=== PATIENT | male | born 1940 | race Two or more races ===

== ENCOUNTER 2020-03-15 11:48 | Inpatient (IN) | payer MEDICARE, OTHER ==
[~2020-03-15] VITALS: Ht 172.7 cm; Wt 67.2 kg
--- NOTE | 2020-03-15 13:35 | NUR ---
Telemetry admit from ER SHAREE TSE admitted to Telemetry unit after SBAR received from DONNA Liang at [facility]. Patient is A & O x4, no s/s of distress. Patient transferred by BANNER to room 286B. Patient oriented to Suri Vera, primary RN, unit, room, bed, and unit policies regarding patient care and visiting hours. Patient on room air, weighed by bedscale and encouraged to call if they need something. All questions and concerns addressed, patient verbalized understanding.
--- NOTE | 2020-03-15 13:36 | NUR ---
Accepting Dr. Darrel SHEA.
[2020-03-15 14:00] VITALS: BP 128/80
--- NOTE | 2020-03-15 14:14 | NUR ---
Spoke to Dr. Rojo, will page Dr. Garcia as accepting .
[2020-03-15] MEDS ORDERED: ACETAMINOPHEN 500 MG TAB PO PRN (15:30)
[2020-03-15] MEDS ORDERED: NITROGLYCERIN 0.4 MG SL TAB SL PRN (15:30)
[2020-03-15] MEDS ORDERED: MORPHINE SULF INJ 2 MG/ML SYRINGE 1ML IV PRN (15:30)
[2020-03-15] MEDS ORDERED: HYDR-3682 PO (15:52)
[2020-03-15] MEDS ORDERED: BUSP10TA90 PO (15:52)
[2020-03-15] MEDS ORDERED: CARV12.544 PO (15:52)
[2020-03-15] MEDS ORDERED: TRAZ-181 PO (15:52)
[2020-03-15] MEDS ORDERED: ATOR20TA PO (15:52)
[2020-03-15 17:30] LABS: Basophils # (auto) 0.1 10 ^3/uL (0-0.2); Basophils % (auto) 1.9 % (0.0-2.0); Eosinophils # (auto) 0.5 10 ^3/uL (0-0.8); Hematocrit 32.1 % (41.0-53.0); Hemoglobin 11.1 g/dL (13.5-17.5); Monocytes # (auto) 0.8 10 ^3/uL (0-1.3); Nucleated Red Blood Cells % 0.1 %; Red Blood Cells 3.01 10^6/uL (4.5-5.90)
[2020-03-15 17:32] LABS: Eosinophils % (auto) 9.4 % (0.0-7.0); Lymphocytes # (auto) 1.7 10 ^3/uL (0.4-5.4); Lymphocytes % (auto) 33.7 % (10.0-50.0); Mean Corpuscular Hemoglobin 36.9 pg (28.0-32.0); Mean Corpuscular Hgb Conc. 34.6 g/dL (32.0-36.0); Mean Corpuscular Volume 106.6 fL (80.0-100.0); Monocytes % (auto) 15.8 % (0.0-12.0); Neutrophils # (auto) 1.9 10 ^3/uL (1.6-8.6); Neutrophils % (auto) 39.2 % (37.0-80.0); Platelet Count (auto) 155 10^3/uL (140-450); Red Cell Distribution Width 13.6 % (11.8-14.3); White Blood Cell 4.9 10^3/uL (4.4-10.8)
[2020-03-15 17:43] LABS: Albumin 2.8 g/dL (3.4-5.0); Calcium 8.1 mg/dL (8.5-10.1); Potassium 3.7 mmol/L (3.5-5.1)
[2020-03-15 17:48] LABS: BUN/Creatinine Ratio 10.3; Bilirubin, Total 0.8 mg/dL (0.2-1.0); Total Protein 7.4 g/dL (6.4-8.2)
[2020-03-15 17:51] LABS: INR 1.12 (0.9-1.15); Partial Thromboplastin Time 31.6 sec (23.64-32.05)
[2020-03-15] MEDS: CARVEDILOL 12.5 MG TAB PO SCH (19:11)
--- NOTE | 2020-03-15 19:44 | NUR ---
Opening Shift Note Received report and assumed care of patient. Patient is awake and alert. No signs or symptoms of distress noted, patient currently denies pain. Instructed patient on plan of care and to call for assistance as needed. Will continue to monitor.
[2020-03-15] MEDS: ATORVASTATIN 20 MG TAB PO SCH (21:57)
[2020-03-15] MEDS: busPIRone HCL 10 MG TAB PO SCH (21:57)
[2020-03-15] MEDS: MAGNESIUM OXIDE 400 MG TAB PO SCH (21:57)
[2020-03-15] MEDS: AMIODARONE HCL 200 MG TAB PO SCH (21:57)
[2020-03-15] MEDS: traZODone HCL 50 MG TAB PO SCH (21:58)
[2020-03-15] MEDS: hydrOXYzine HCL 10 MG TAB PO PRN (21:58)
[2020-03-15 22:29] VITALS: BP 132/75
[2020-03-16 01:04] LABS: Urine Bacteria FEW /hpf (None Seen); Urine Blood Negative /uL (Negative); Urine Hyaline Cast FEW /lpf (0 - 2); Urine Mucus FEW (None Seen); Urine Specific Gravity 1.014 (1.001-1.035); Urine WBC 2 /hpf (0 - 3)
[2020-03-16 05:19] VITALS: BP 133/72
--- NOTE | 2020-03-16 07:20 | NUR ---
Opening Note Assumed pt care from NOC RN. Pt is a/ox4 with no s/s of distress or SOB. Pt is currently sitting upright in bed with no complaints at this time. Discussed POC with pt; pending Cardiology consult, pt verbalized understanding. Safety measures maintained with call light within reach, bed in lowest position and side rails up. Will continue to monitor.
[2020-03-16] MEDS: CARVEDILOL 12.5 MG TAB PO SCH ×2 (07:21→17:13)
[2020-03-16 08:37] VITALS: BP 114/67
[2020-03-16] MEDS: MAGNESIUM OXIDE 400 MG TAB PO SCH ×2 (08:47→21:59)
[2020-03-16] MEDS: CLOPIDOGREL BISULFATE 75 MG TAB PO SCH (08:47)
[2020-03-16] MEDS: AMIODARONE HCL 200 MG TAB PO SCH ×2 (08:47→21:59)
[2020-03-16] MEDS: busPIRone HCL 10 MG TAB PO SCH ×2 (08:48→21:59)
--- NOTE | 2020-03-16 09:26 | NUR ---
Dr Salazar at Bedside MD to see pt. Plans for L HC on Wednesday. New orders received.
--- NOTE | 2020-03-16 12:12 | NUR ---
Dr Yin at Bedside MD to see pt. Discussed POC with pt and [facility] plans on Wednesday. No new orders. Will continue to monitor.
[2020-03-16 12:48] VITALS: BP 123/70
[2020-03-16] MEDS: hydrOXYzine HCL 10 MG TAB PO PRN (15:00)
--- NOTE | 2020-03-16 15:30 | NUR ---
IV Insertion and Removal 20 G to pt's R FA removed. One attempt made. Clean sterile technique used. Pt tolerated insertion well. IV removal to pt's R FA due to self removal. Catheter was removed fully intact. Site is asymptomatic. No bleeding to site.
[2020-03-16 17:00] VITALS: BP 117/69
--- NOTE | 2020-03-16 19:42 | NUR ---
Opening Shift Note Received report and assumed care of patient. Patient is awake and alert. Instructed patient on plan of care and to call for assistance as needed. Will continue to monitor.
[2020-03-16] MEDS: traZODone HCL 50 MG TAB PO SCH (21:59)
[2020-03-16] MEDS: ATORVASTATIN 20 MG TAB PO SCH (21:59)
[2020-03-16 22:00] VITALS: BP 128/68
[2020-03-17 05:30] VITALS: BP 127/70
--- NOTE | 2020-03-17 07:30 | NUR ---
Opening Shift Note RECEIVED REPORT FROM NOC RN. Assumed care of patient, awake and alert. No S/S of distress/SOB or pain. BED IN LOWEST, LOCKED POSITION WITH SIDERAILS UP x2 AND CALL LIGHT WITHIN REACH. Instructed on POC and to call for assist PRN, will continue to monitor for changes Q1hr and PRN.
[2020-03-17] MEDS: CARVEDILOL 12.5 MG TAB PO SCH ×2 (08:15→17:30)
[2020-03-17] MEDS: hydrOXYzine HCL 10 MG TAB PO PRN ×2 (08:15→17:30)
[2020-03-17 09:00] VITALS: BP 118/58
[2020-03-17] MEDS: busPIRone HCL 10 MG TAB PO SCH ×2 (09:35→22:24)
[2020-03-17] MEDS: CLOPIDOGREL BISULFATE 75 MG TAB PO SCH (09:35)
[2020-03-17] MEDS: AMIODARONE HCL 200 MG TAB PO SCH ×2 (09:36→22:24)
[2020-03-17] MEDS: MAGNESIUM OXIDE 400 MG TAB PO SCH ×2 (09:36→22:24)
--- NOTE | 2020-03-17 12:00 | NUR ---
DR. Rama CAMARENA AT BEDSIDE.
[2020-03-17 12:30] VITALS: BP 113/59
[2020-03-17 16:58] VITALS: BP 110/63
--- NOTE | 2020-03-17 19:00 | NUR ---
OPENING NOTE Received report from day shift RN. Patient is A&O X's 4 with no s/s of distress and reports no pain. Educated patient on POC and to use call light when in need of assistance. Patient verbalized understanding. Bed is in lowest/locked position with side rails up X's 2 and call light is within reach of patient. Will continue care. Cane is at bedside.
[2020-03-17 21:28] VITALS: BP 111/57
[2020-03-17] MEDS: ATORVASTATIN 20 MG TAB PO SCH (22:24)
[2020-03-17] MEDS: traZODone HCL 50 MG TAB PO SCH (22:24)
--- NOTE | 2020-03-18 | NUR ---
PATIENT NPO Patient NPO. removed food/water from bedside. Patient is aware
[2020-03-18 05:00] VITALS: BP 116/65
--- NOTE | 2020-03-18 07:50 | NUR ---
PATIENT TAKEN TO CATTLE DEHORNER FOR PROCEDURE.
[2020-03-18] MEDS: CARVEDILOL 12.5 MG TAB PO SCH ×2 (08:00→18:00)
[2020-03-18] MEDS ORDERED: LIDOCAINE 2%HCL (LOCAL ANESTH.) INJ 20ML MDV ONE (08:03)
[2020-03-18] MEDS ORDERED: IODIXANOL 320MG/ML 100ML BTL IV ONE ×2 (08:04→08:53)
[2020-03-18] MEDS ORDERED: fentaNYL CITRATE 100 MCG/2 ML VL ONE (08:12)
[2020-03-18] MEDS ORDERED: ANGIOMAX 250 MG VIAL IV ONE (08:12)
[2020-03-18] MEDS ORDERED: SODIUM CHL 0.9% 50 ML ONE (08:13)
[2020-03-18] MEDS ORDERED: MIDAZOLAM HCL 1MG/1ML-2 ML VIAL ONE (08:13)
[2020-03-18] MEDS ORDERED: CLOPIDOGREL 300 MG TAB ONE (09:00)
[2020-03-18] MEDS ORDERED: ASPirin 325 MG TAB ONE (09:00)
[2020-03-18 09:07] VITALS: BP 120/63
[2020-03-18] MEDS: CLOPIDOGREL BISULFATE 75 MG TAB PO SCH (10:00)
--- NOTE | 2020-03-18 10:36 | NUR ---
RECEIVED REPORT FROM DONNA ROSS.
--- NOTE | 2020-03-18 10:50 | NUR ---
PATIENT BACK ON UNIT FROM LANGUAGE PATH.
[2020-03-18] MEDS: MAGNESIUM OXIDE 400 MG TAB PO SCH ×2 (12:42→21:59)
[2020-03-18] MEDS: busPIRone HCL 10 MG TAB PO SCH ×2 (12:42→21:58)
[2020-03-18] MEDS: AMIODARONE HCL 200 MG TAB PO SCH ×2 (12:42→21:59)
[2020-03-18 12:52] VITALS: BP 105/62
[2020-03-18 17:08] VITALS: BP 99/57
--- NOTE | 2020-03-18 19:00 | NUR ---
OPENING NOTE Received report from day shift RN. Patient is A&O X's 4 with no s/s of distress and reports no pain. Dressing to left groin is C/D/I and is soft. Patient denies any pain to area. Educated patient on POC and to use call light when in need of assistance. Patient verbalized understanding. Bed is in lowest/locked position with side rails up X's 2 and call light is within reach of patient. Will continue care. Cane is at bedside.
[2020-03-18] MEDS: hydrOXYzine HCL 10 MG TAB PO PRN (20:08)
[2020-03-18] MEDS: traZODone HCL 50 MG TAB PO SCH (21:59)
[2020-03-18] MEDS: ATORVASTATIN 20 MG TAB PO SCH (21:59)
[2020-03-18 22:27] VITALS: BP 116/62
[2020-03-19 05:09] VITALS: BP 111/57
[2020-03-19 06:50] LABS: Basophils # (auto) 0.1 10 ^3/uL (0-0.2); Eosinophils # (auto) 0.3 10 ^3/uL (0-0.8); Lymphocytes # (auto) 1.2 10 ^3/uL (0.4-5.4); Monocytes # (auto) 0.7 10 ^3/uL (0-1.3); White Blood Cell 4.8 10^3/uL (4.4-10.8)
[2020-03-19 06:52] LABS: Basophils % (auto) 1.1 % (0.0-2.0); Eosinophils % (auto) 7.1 % (0.0-7.0); Hemoglobin 9.9 g/dL (13.5-17.5); Mean Corpuscular Hemoglobin 37.3 pg (28.0-32.0); Mean Corpuscular Hgb Conc. 35.4 g/dL (32.0-36.0); Mean Corpuscular Volume 105.4 fL (80.0-100.0); Monocytes % (auto) 14.4 % (0.0-12.0); Neutrophils # (auto) 2.5 10 ^3/uL (1.6-8.6); Neutrophils % (auto) 52.4 % (37.0-80.0); Platelet Count (auto) 130 10^3/uL (140-450); Red Blood Cells 2.65 10^6/uL (4.5-5.90); Red Cell Distribution Width 13.4 % (11.8-14.3)
[2020-03-19 07:26] LABS: BUN/Creatinine Ratio 13.9; Potassium 4.1 mmol/L (3.5-5.1)
[2020-03-19 08:00] VITALS: BP 111/64
[2020-03-19] MEDS: CARVEDILOL 12.5 MG TAB PO SCH (08:00)
--- NOTE | 2020-03-19 08:20 | NUR ---
Opening Shift Note Assumed care of patient, awake and alert. No S/S of distress/SOB or pain. Instructed on POC and to call for assist PRN, will continue to monitor for changes Q1hr and PRN. Bed locked in lowest position with two side rails up and call light in reach.
[2020-03-19 09:00] VITALS: BP 111/64
[2020-03-19] MEDS: AMIODARONE HCL 200 MG TAB PO SCH (09:56)
[2020-03-19] MEDS: CLOPIDOGREL BISULFATE 75 MG TAB PO SCH (09:57)
[2020-03-19] MEDS: MAGNESIUM OXIDE 400 MG TAB PO SCH (09:57)
[2020-03-19] MEDS: busPIRone HCL 10 MG TAB PO SCH (09:57)
[2020-03-19] MEDS ORDERED: ASPirin 81 mg TAB PO SCH (10:00)
--- NOTE | 2020-03-19 12:08 | NUR ---
assessment re: ss consult needs more help at home Patient is a 79 year old male who is alert and oriented. Patients cognitive abilities are intact. Prior to admission patient lived home with family and functioned independently. Patient informed me he is able to care for his own ADLs. Per patient he will return home to his prior living arrangements post discharge and family will transport him home. Patient informed me he has a cane for home use. I informed patient of his ss consult for needing additional help at home. Patient informed me he never requested ss consult that he needs additional help at home. Patient informed me he cares for himself. Patient informed me he has good family support. Patient informed me the only thing he does not do is drive. Patient informed me his daughter and son in law are in the home for any needs he may have. Patient has no post discharge needs at this time. I informed patient he has a right to speak to a social service agency director regarding all care. I informed patient he has a right to participate in any and all discharge planning. Patient does not have a POA and advanced directive. I have offered patient information on POA and advanced directives. I informed the patient the advantages and benefits of having an Advanced Directive. Patient verbalized understanding and agreed to discharge plan. Addendum: 03/19/20 at 1215 by Tamika ZARAGOZA Amended: Links added.
[2020-03-19 13:01] VITALS: BP 128/63
[2020-03-19 14:04] VITALS: BP 111/64
--- NOTE | 2020-03-19 16:30 | NUR ---
Discharge instructions given as ordered. Encourage to follow up with PMD as instructed. All questions and concerns addressed. Patient verbalized understanding. Medication reconciliation form completed and copy given to patient. Home medications held in Pharmacy returned to patient, and no needed vaccines given. IV removed with catheter intact, pressure dressing applied. Telemetry unit returned to ICU. Patient taken to vehicle via wheelchair with all personal belongings, accompanied by staff and family member. No distress noted at time of departure.
== END 2020-03-19 16:30 | disposition home or self-care (01) | DRG 247 ==
LOC: TELE-WESTW 13:30
PROVIDERS: ADMIT Internal Medicine; ATTEND Internal Medicine
PROC: 027034Z Dilation of Coronary Artery, One Artery with Drug-eluting Intraluminal Device, Percutaneous Approach (ICD-10-PCS; principal; 2020-03-18)
PROC: B2111ZZ Fluoroscopy of Multiple Coronary Arteries using Low Osmolar Contrast (ICD-10-PCS; 2020-03-18)
DX: I25.110 Atherosclerotic heart disease of native coronary artery with unstable angina pectoris (principal); I47.2 Ventricular tachycardia; R57.9 Shock, unspecified; E44.1 Mild protein-calorie malnutrition; N18.9 Chronic kidney disease, unspecified; I12.9 Hypertensive chronic kidney disease with stage 1 through stage 4 chronic kidney disease, or unspecified chronic kidney disease; E78.5 Hyperlipidemia, unspecified; F41.9 Anxiety disorder, unspecified; Z79.02 Long term (current) use of antithrombotics/antiplatelets; Z91.19 Patient's noncompliance with other medical treatment and regimen; Z95.810 Presence of automatic (implantable) cardiac defibrillator; Z79.82 Long term (current) use of aspirin
CPT/HCPCS: 36415; 71045; 80048; 80053; 80061; 81001; 85025; 85610; 85730; 86850; 86900; 86901; 92928; 93454; 99152; 99153; C1874; G0378; J2250; Q9967

== ENCOUNTER 2020-04-28 16:17 | Inpatient (IN) | payer OTHER ==
[~2020-04-28] VITALS: Ht 172.7 cm; Wt 68.4 kg
[~2020-04-28 16:17] MED LIST: ATOR20TA PO; BUSP10TA90 PO; CARV12.544 PO; HYDR-3682 PO; TRAZ-181 PO
[2020-04-28 16:52] LABS: Eosinophils # (auto) 0.1 10 ^3/uL (0-0.8); Hematocrit 38.6 % (41.0-53.0); Hemoglobin 13.4 g/dL (13.5-17.5); Mean Corpuscular Hemoglobin 34.8 pg (28.0-32.0); Mean Corpuscular Hgb Conc. 34.7 g/dL (32.0-36.0); Mean Corpuscular Volume 100.3 fL (80.0-100.0); Monocytes # (auto) 0.7 10 ^3/uL (0-1.3); Monocytes % (auto) 10.3 % (0.0-12.0); Platelet Count (auto) 138 10^3/uL (140-450); Red Blood Cells 3.85 10^6/uL (4.5-5.90)
[2020-04-28 16:54] LABS: Basophils # (auto) 0.2 10 ^3/uL (0-0.2); Basophils % (auto) 3.2 % (0.0-2.0); Lymphocytes # (auto) 1.5 10 ^3/uL (0.4-5.4); Lymphocytes % (auto) 22.4 % (10.0-50.0); Neutrophils # (auto) 4.3 10 ^3/uL (1.6-8.6); Neutrophils % (auto) 63.1 % (37.0-80.0); Nucleated Red Blood Cells % 0.2 %; White Blood Cell 6.9 10^3/uL (4.4-10.8)
[2020-04-28 17:07] LABS: Albumin 3.7 g/dL (3.4-5.0); Anion Gap 16 (5-15); Blood Urea Nitrogen 9 mg/dL (7-18); Calcium 8.4 mg/dL (8.5-10.1); Carbon Dioxide 18 mmol/L (21-32); Chloride 102 mmol/L (98-107); Glucose 124 mg/dL (74-106); Potassium 3.5 mmol/L (3.5-5.1); Sodium 136 mmol/L (136-145)
[2020-04-28 17:08] LABS: INR 1.12 (0.9-1.15); Partial Thromboplastin Time 27.5 sec (23.64-32.05)
[2020-04-28 17:13] LABS: Alanine Aminotransferase 241 U/L (16-61); Alkaline Phosphatase 148 U/L (45-117); Aspartate Aminotransferase 322 U/L (15-37); BUN/Creatinine Ratio 9.6; GFR African American 100 mL/min; GFR Non-African American 82 mL/min; Total Protein 8.7 g/dL (6.4-8.2)
[2020-04-28] MEDS ORDERED: DOCUSATE SOD 100 MG CAP PO PRN (20:45)
[2020-04-28] MEDS ORDERED: ONDANSETRON HCL 4 MG/2 ML VIAL IV PRN (20:45)
[2020-04-28] MEDS ORDERED: traZODone HCL 50 MG TAB PO PRN (20:45)
[2020-04-28] MEDS ORDERED: DEXTROSE (50%) 50ML SYRG IV PRN (20:45)
[2020-04-28] MEDS ORDERED: NITROGLYCERIN 0.4 MG SL TAB SL PRN (20:45)
[2020-04-28] MEDS ORDERED: MORPHINE SULF INJ 2 MG/ML SYRINGE 1ML IV PRN ×2 (20:45)
[2020-04-28] MEDS ORDERED: ACETAMINOPHEN 325 MG TAB PO PRN ×2 (20:45)
[2020-04-28 21:45] VITALS: BP 141/84
[2020-04-28] MEDS ORDERED: ATORVASTATIN 20 MG TAB PO SCH (22:00)
[2020-04-28] MEDS: busPIRone HCL 10 MG TAB PO SCH (22:41)
[2020-04-28] MEDS: CARVEDILOL 12.5 MG TAB PO SCH (22:42)
[2020-04-28] MEDS: ENOXAPARIN SOD 60 MG/0.6 ML SYRINGE SC SCH (22:42)
--- NOTE | 2020-04-28 22:52 | NUR ---
Telemetry admit from ER Patient admitted to Telemetry unit and oriented to primary RN, unit, room, bed, and unit policies regarding patient care and visiting hours. Patient now on continuous telemetry monitoring, tele box #14 and telemetry reading on arrival to unit is atrial fibrillation with runs of ventricular tachycardia (see following note). Patient placed on bedside oxygen at 2 l/min, weighed by bedscale and encouraged to call if they need something. All questions and concerns addressed, patient verbalized understanding.
[2020-04-28] MEDS: ATORVASTATIN 20 MG TAB PO SCH (22:58)
--- NOTE | 2020-04-28 23:24 | NUR ---
Patient had 4 runs of ventricular tachycardia, one at 2249 (16 beats), one at 2254 (22 beats), one at 2254 again (22 beats) and a final one at 2255 (5 beats). Patient arrived at 2252 and had to use the bathroom. While in the bathroom he had a sudden, single burst of chest pain at approximately 2253 that was so intense it caused him to vomit dark brown vomitus. Afterwards, pain immediately disappeared and patient was able to be walked to his bed. Patient noted to be in V-paced rhythm primarily thereafter, changing occasionally to Atrial fibrillation. Vitals: BP: 141/84 with MAP of 116, RR: 18, O2 saturation: 94%, Pulse: 93 (atrial fibrillation), temp: 98.2. EKG performed: Atrial Fibrillation with V-paced complexes. Patient placed on 2 l/min NC. Reviewed medical history and confirmed current medication list before showing MD Nam the EKG strip and printouts of Ventricular Tachycardia runs. MD made aware patient has AICD. MD Nam noted that single instance of pain may be from AICD firing but that Floor Scraper would evaluate in AM. MD Nam did not order any medications at that time but asked that I contact him again if patient becomes symptomatic or if final troponin is elevated so that we can start him on Amiodarone. Patient is currently resting in bed comfortably. Bedside commode placed at bedside along with urinal so that patient does not have to move far to accomplish elimination needs. Will continue to assess.
[2020-04-29] VITALS (7 sets, daily range): BP systolic 115–146; BP diastolic 60–93
[2020-04-29] MEDS: ACCU-CHEK COMFORT CURVE STRIP VI SCH ×6 (00:36→20:00)
[2020-04-29] MEDS: InsuLIN REG 1unit/0.01ml Soln (100units/ml) SC SCH ×6 (00:37→20:00)
[2020-04-29] MEDS: ONDANSETRON HCL 4 MG/2 ML VIAL IV PRN ×2 (00:40→06:49)
[2020-04-29] MEDS ORDERED: MAGN400C4 PO (01:28)
[2020-04-29] MEDS ORDERED: CLOP75TA41 PO (01:28)
[2020-04-29] MEDS ORDERED: ASPI-231 PO (01:28)
[2020-04-29 05:33] LABS: Basophils # (auto) 0.1 10 ^3/uL (0-0.2); Basophils % (auto) 1.2 % (0.0-2.0); Eosinophils # (auto) 0 10 ^3/uL (0-0.8); Lymphocytes # (auto) 1.1 10 ^3/uL (0.4-5.4); Neutrophils # (auto) 5.1 10 ^3/uL (1.6-8.6); Neutrophils % (auto) 71.5 % (37.0-80.0); Nucleated Red Blood Cells % 0.1 %; White Blood Cell 7.1 10^3/uL (4.4-10.8)
[2020-04-29 05:35] LABS: Eosinophils % (auto) 0.4 % (0.0-7.0); Hematocrit 34.3 % (41.0-53.0); Lymphocytes % (auto) 15.4 % (10.0-50.0); Mean Corpuscular Hemoglobin 35.4 pg (28.0-32.0); Mean Corpuscular Hgb Conc. 35.1 g/dL (32.0-36.0); Mean Corpuscular Volume 100.9 fL (80.0-100.0); Monocytes # (auto) 0.8 10 ^3/uL (0-1.3); Monocytes % (auto) 11.5 % (0.0-12.0); Platelet Count (auto) 109 10^3/uL (140-450); Red Cell Distribution Width 13.6 % (11.8-14.3)
[2020-04-29 05:57] LABS: Calcium 8.2 mg/dL (8.5-10.1)
[2020-04-29 06:02] LABS: BUN/Creatinine Ratio 23.7
--- NOTE | 2020-04-29 08:00 | NUR ---
ASSESSMENT NOTE PT IS ALERT ORIENTED X4, RESTING IN BED COMFORTABLY, NO DISTRESS NOTED, ABLE TO SELF REPOSITION AND VERBALIS HIS DEMANDS, DENIES ANY CHEST PAIN AT THIS TIME, CALL LIGHT WITHIN REACH
[2020-04-29] MEDS: ASPirin 81 mg TAB PO SCH (09:24)
[2020-04-29] MEDS: DOCUSATE SOD 100 MG CAP PO SCH (09:24)
[2020-04-29] MEDS: busPIRone HCL 10 MG TAB PO SCH ×2 (09:24→22:04)
[2020-04-29] MEDS: CLOPIDOGREL BISULFATE 75 MG TAB PO SCH (09:25)
[2020-04-29] MEDS: ENOXAPARIN SOD 60 MG/0.6 ML SYRINGE SC SCH ×2 (09:26→22:05)
[2020-04-29] MEDS: CARVEDILOL 12.5 MG TAB PO SCH ×2 (09:26→22:04)
[2020-04-29] MEDS: LISINOPRIL 10 MG TAB PO SCH (09:27)
--- NOTE | 2020-04-29 11:04 | NUR ---
DR BENITEZ AT BED SIDE FOLLOWING UP ON PT, AND ASSESSING THE PACEMAKER
--- NOTE | 2020-04-29 14:29 | NUR ---
Nutrition Assessment/Consult Note please see attached link for complete assessment [employer] needs BW 62 [id number] kcal (25-30kcal/kg BW) Est protein needs: 62-75 (1.0-1.2 g/kgBW). Will reassess prn. Addendum: 04/29/20 at [address] Amended: Links added.
--- NOTE | 2020-04-29 17:10 | NUR ---
SS CONSULT Per consult no pcp. Tamika Watkins to see patient for PCP. Addendum: 04/29/20 at 1710 by Tamika ZARAGOZA Amended: Links added.
[2020-04-29] MEDS: hydrOXYzine 25 MG TAB or CAP PO SCH (17:25)
--- NOTE | 2020-04-29 18:21 | NUR ---
PT CONTINUE STABLE, CONTINUE MONITORING, MADE AWARE TO HOLD ON HIS DINNER, TILL ABDOMEN US IS DONE, VERBALIS UNDERSTANDING
--- NOTE | 2020-04-29 19:15 | NUR ---
Opening note Assumed care of patient. Patient alert and orientated x4. No SOB OR distress noted. POC reviewed. WILL continue to monitor. Call light within reach.
[2020-04-29] MEDS: ATORVASTATIN 20 MG TAB PO SCH (22:05)
[2020-04-30] MEDS: InsuLIN REG 1unit/0.01ml Soln (100units/ml) SC SCH ×6 (04:00→20:00)
[2020-04-30] MEDS: ACCU-CHEK COMFORT CURVE STRIP VI SCH ×6 (04:29→20:00)
[2020-04-30 05:00] VITALS: BP 112/55
[2020-04-30 06:41] LABS: Calcium 7.9 mg/dL (8.5-10.1); Potassium 3.8 mmol/L (3.5-5.1)
[2020-04-30 06:47] LABS: Albumin 2.9 g/dL (3.4-5.0); BUN/Creatinine Ratio 56.3; Bilirubin, Total 1.1 mg/dL (0.2-1.0); Total Protein 6.9 g/dL (6.4-8.2)
[2020-04-30 08:48] VITALS: BP 112/43
--- NOTE | 2020-04-30 09:54 | NUR ---
AT BEDSIDE DR CAMARENA AT BEDSIDE, NEW ORDERS RECEIVED. CONT CARE
[2020-04-30] MEDS ORDERED: PANTOPRAZOLE 40 MG/10 ML VIAL INJ IV SCH (10:00)
[2020-04-30] MEDS: DOCUSATE SOD 100 MG CAP PO SCH (10:00)
[2020-04-30] MEDS: LISINOPRIL 10 MG TAB PO SCH (10:00)
[2020-04-30] MEDS: ASPirin 81 mg TAB PO SCH (10:05)
[2020-04-30] MEDS: busPIRone HCL 10 MG TAB PO SCH ×2 (10:05→21:47)
[2020-04-30] MEDS: CLOPIDOGREL BISULFATE 75 MG TAB PO SCH (10:06)
[2020-04-30] MEDS: CARVEDILOL 12.5 MG TAB PO SCH ×2 (10:06→21:55)
[2020-04-30 13:06] VITALS: BP 112/43
[2020-04-30 16:30] VITALS: BP 124/69
[2020-04-30] MEDS: hydrOXYzine 25 MG TAB or CAP PO SCH (18:47)
--- NOTE | 2020-04-30 19:00 | NUR ---
Patient care endorsed endorsed care to Purnima diaz. Patient laying comfortably in bed. No acute distress or sob noted. Call light within reach.
--- NOTE | 2020-04-30 19:20 | NUR ---
Opening note Assumed care of patient. Patient alert and orientated x4. No distress or SOB noted at this time. POC reviewed. Bed locked and in lowest position. Call light within reach. Will continue to monitor.
[2020-04-30] MEDS: ATORVASTATIN 20 MG TAB PO SCH (21:47)
[2020-04-30] MEDS: PANTOPRAZOLE 40 MG TAB PO SCH (21:48)
[2020-04-30] MEDS: MEXILETINE HYDROCHLORIDE 150 MG CAP PO SCH (21:55)
[2020-04-30 22:00] VITALS: BP 103/58
[2020-04-30 22:07] VITALS: BP 103/58
[2020-05-01] MEDS: ACCU-CHEK COMFORT CURVE STRIP VI SCH ×6 (04:00→20:35)
[2020-05-01] MEDS: InsuLIN REG 1unit/0.01ml Soln (100units/ml) SC SCH ×6 (04:00→20:00)
[2020-05-01 05:53] LABS: Eosinophils # (auto) 0.2 10 ^3/uL (0-0.8); Hematocrit 24.4 % (41.0-53.0); Lymphocytes # (auto) 1.4 10 ^3/uL (0.4-5.4); Monocytes # (auto) 0.5 10 ^3/uL (0-1.3); Neutrophils # (auto) 3.6 10 ^3/uL (1.6-8.6); Red Blood Cells 2.42 10^6/uL (4.5-5.90); Red Cell Distribution Width 13.9 % (11.8-14.3)
[2020-05-01 05:55] VITALS: BP 95/52
[2020-05-01 05:55] LABS: Basophils # (auto) 0.1 10 ^3/uL (0-0.2); Basophils % (auto) 2.2 % (0.0-2.0); Eosinophils % (auto) 3.6 % (0.0-7.0); Hemoglobin 8.7 g/dL (13.5-17.5); Lymphocytes % (auto) 23.8 % (10.0-50.0); Mean Corpuscular Hemoglobin 35.9 pg (28.0-32.0); Mean Corpuscular Hgb Conc. 35.7 g/dL (32.0-36.0); Mean Corpuscular Volume 100.6 fL (80.0-100.0); Monocytes % (auto) 9.2 % (0.0-12.0); Neutrophils % (auto) 61.2 % (37.0-80.0); Platelet Count (auto) 108 10^3/uL (140-450); White Blood Cell 5.9 10^3/uL (4.4-10.8)
[2020-05-01] MEDS: MEXILETINE HYDROCHLORIDE 150 MG CAP PO SCH ×3 (06:07→23:02)
[2020-05-01 06:20] LABS: Potassium 3.7 mmol/L (3.5-5.1)
[2020-05-01 06:29] LABS: BUN/Creatinine Ratio 44.9; Calcium 7.9 mg/dL (8.5-10.1); Magnesium 2.3 mg/dL (1.6-2.6)
[2020-05-01] MEDS: HYDROcodone-ACET 5/325MG TAB PO PRN (07:11)
--- NOTE | 2020-05-01 07:27 | NUR ---
closing note Endorsed care to day shift RN. Patient has NO SOB or distress noted.
[2020-05-01 09:00] VITALS: BP 97/46
[2020-05-01] MEDS: busPIRone HCL 10 MG TAB PO SCH ×2 (09:44→23:00)
[2020-05-01] MEDS: CLOPIDOGREL BISULFATE 75 MG TAB PO SCH (09:44)
[2020-05-01] MEDS: PANTOPRAZOLE 40 MG TAB PO SCH ×2 (09:44→23:02)
[2020-05-01] MEDS: ASPirin 81 mg TAB PO SCH (09:44)
[2020-05-01] MEDS: CARVEDILOL 12.5 MG TAB PO SCH ×2 (09:45→23:01)
[2020-05-01] MEDS: LISINOPRIL 10 MG TAB PO SCH (09:45)
[2020-05-01] MEDS: DOCUSATE SOD 100 MG CAP PO SCH ×2 (09:45→12:39)
[2020-05-01 13:00] VITALS: BP 100/56
[2020-05-01 16:01] LABS: Basophils # (auto) 0.1 10 ^3/uL (0-0.2); Eosinophils # (auto) 0.2 10 ^3/uL (0-0.8); Lymphocytes # (auto) 1.1 10 ^3/uL (0.4-5.4); Monocytes # (auto) 0.6 10 ^3/uL (0-1.3)
[2020-05-01 16:05] LABS: Eosinophils % (auto) 2.8 % (0.0-7.0); Hematocrit 23.1 % (41.0-53.0); Hemoglobin 8.3 g/dL (13.5-17.5); Lymphocytes % (auto) 17.2 % (10.0-50.0); Mean Corpuscular Hemoglobin 36.3 pg (28.0-32.0); Mean Corpuscular Hgb Conc. 35.9 g/dL (32.0-36.0); Monocytes % (auto) 9.4 % (0.0-12.0); Neutrophils # (auto) 4.5 10 ^3/uL (1.6-8.6); Neutrophils % (auto) 69.6 % (37.0-80.0); Platelet Count (auto) 116 10^3/uL (140-450); Red Blood Cells 2.28 10^6/uL (4.5-5.90); White Blood Cell 6.4 10^3/uL (4.4-10.8)
[2020-05-01 17:00] VITALS: BP 118/58
--- NOTE | 2020-05-01 18:00 | NUR ---
Awaiting stool sample. Patient states he has not had a bowel movement today. Awaiting collection of sample. Cont care
[2020-05-01] MEDS: hydrOXYzine 25 MG TAB or CAP PO SCH (19:31)
--- NOTE | 2020-05-01 19:35 | NUR ---
Opening Shift Note Assumed care of patient, awake and alert. No S/S of distress/SOB or pain. Instructed on POC and to call for assist PRN, patient verbalized understanding. Safety precaution in place, call light within reach, will continue to monitor for changes Q1hr and PRN.
[2020-05-01] MEDS: ATORVASTATIN 20 MG TAB PO SCH (23:01)
[2020-05-01 23:35] VITALS: BP 106/55
[2020-05-02] MEDS: ACCU-CHEK COMFORT CURVE STRIP VI SCH ×5 (00:29→21:36)
--- NOTE | 2020-05-02 01:05 | NUR ---
ROUNDING Patient sleeping at this time, respirations even and unlabored, will continue to monitor
[2020-05-02] MEDS: InsuLIN REG 1unit/0.01ml Soln (100units/ml) SC SCH ×5 (04:00→21:36)
[2020-05-02] MEDS: MEXILETINE HYDROCHLORIDE 150 MG CAP PO SCH ×3 (05:35→21:19)
[2020-05-02 05:38] VITALS: BP 97/56
[2020-05-02 06:09] LABS: Eosinophils # (auto) 0.2 10 ^3/uL (0-0.8); Hemoglobin 7.8 g/dL (13.5-17.5); Lymphocytes # (auto) 0.8 10 ^3/uL (0.4-5.4); Mean Corpuscular Hemoglobin 35.6 pg (28.0-32.0); Neutrophils # (auto) 1.8 10 ^3/uL (1.6-8.6); Nucleated Red Blood Cells % 0.1 %; Red Blood Cells 2.18 10^6/uL (4.5-5.90); White Blood Cell 3.3 10^3/uL (4.4-10.8)
[2020-05-02 06:12] LABS: Basophils # (auto) 0.1 10 ^3/uL (0-0.2); Basophils % (auto) 1.9 % (0.0-2.0); Mean Corpuscular Hgb Conc. 35.3 g/dL (32.0-36.0); Mean Corpuscular Volume 100.8 fL (80.0-100.0); Monocytes # (auto) 0.4 10 ^3/uL (0-1.3); Monocytes % (auto) 13.4 % (0.0-12.0); Neutrophils % (auto) 54.7 % (37.0-80.0); Platelet Count (auto) 82 10^3/uL (140-450); Red Cell Distribution Width 14.1 % (11.8-14.3)
[2020-05-02 06:27] LABS: Albumin 2.8 g/dL (3.4-5.0); Calcium 7.6 mg/dL (8.5-10.1); Potassium 3.7 mmol/L (3.5-5.1)
[2020-05-02 06:30] LABS: BUN/Creatinine Ratio 36.4; Bilirubin, Total 0.6 mg/dL (0.2-1.0); Total Protein 6.5 g/dL (6.4-8.2)
[2020-05-02 09:00] VITALS: BP 105/55
[2020-05-02] MEDS: LISINOPRIL 10 MG TAB PO SCH (10:00)
[2020-05-02 10:08] LABS: Hepatitis B Surface Antibody Negative
[2020-05-02] MEDS: DOCUSATE SOD 100 MG CAP PO SCH (10:08)
[2020-05-02] MEDS: CLOPIDOGREL BISULFATE 75 MG TAB PO SCH (10:09)
[2020-05-02] MEDS: CARVEDILOL 12.5 MG TAB PO SCH ×2 (10:09→21:20)
[2020-05-02] MEDS: ASPirin 81 mg TAB PO SCH (10:09)
[2020-05-02] MEDS: busPIRone HCL 10 MG TAB PO SCH ×2 (10:09→21:20)
[2020-05-02] MEDS: PANTOPRAZOLE 40 MG TAB PO SCH ×2 (10:10→21:20)
[2020-05-02 10:40] LABS: Hepatitis A Total Antibody Negative
--- NOTE | 2020-05-02 10:42 | NUR ---
Spoke to Hospitalist MD Dickens aware of patient's status including labs, VS, hgb level drop. Per MD Dickens contact secondary social studies teacher Dr Salazar and ask regarding continuing patient on asa and plavix at this time. Awaiting stool collection for SFOB, pt aware and has not had bowel movement. Cont care
--- NOTE | 2020-05-02 10:55 | NUR ---
Cardio at bedside MD Salazar aware of patient's status including hgb levels. New orders received to hold ASA and cont Plavix at this time. Hospitalist Dr Dickens notified. Cont care
[2020-05-02 12:03] LABS: Hepatitis B Surface Antigen Negative (Negative)
[2020-05-02 12:04] LABS: Hepatitis B Core Total AB Negative
[2020-05-02 12:32] LABS: Hepatitis C Antibody Positive (Negative)
--- NOTE | 2020-05-02 12:34 | NUR ---
Nutrition Followup Note Wt 63.2 kg Pt with reported wt loss prior to admission, pt wt increased since admission. Per RN doc pt with adequate po intake >75% x3 days. Will continue to monitor po intake and wt status of pt. Est Energy needs BW 62 [id number] kcal (25-30kcal/kg BW) Est protein needs: 62-75 (1.0-1.2 g/kgBW). Will reassess prn. Labs:BUN 44H, Gluc 115H, Ca 7.6L, Alb 2.8L Skin: BS 19 low risk scabs on moore per RN doc BM: 2 BM 6/2 per RN doc PES: Altered nutrition related lab values r.t current chronic medical condition aeb elev BUN hyperglcyemia hypocalcemia PES: Partially resolved, pt wt increased since admission: Increased nutrient needs r/t current medical condition aeb pt`s losing wt per records Comments 1) consider glucerna 1 carton bid 2) refer to CDE oN DC 3) continue current plan of care Expected Outcomes/Goals: pt will have improved labs pt will not lose any more wt F/u mod 3-5 days
[2020-05-02 13:11] VITALS: BP 97/66
--- NOTE | 2020-05-02 13:53 | NUR ---
GI at bedside MD Schultz at bedside, aware of patient's status including hgb levels, pt has not had a bowel movement yet so unable to collect SFOB at this time. New orders received for Lactulose. Per MD no invasive interventions at this time d/t pt on Plavix including no colonoscopy at this time and cont to monitor. Patient denies any bleeding. No active bleeding noted. Will medicate as ordered and cont care
[2020-05-02] MEDS ORDERED: LACTULOSE 20Gm/30ML SOLN PO PRN (14:00)
[2020-05-02 17:00] VITALS: BP 104/62
[2020-05-02] MEDS: hydrOXYzine 25 MG TAB or CAP PO SCH (17:51)
--- NOTE | 2020-05-02 18:35 | NUR ---
Stool sample sent as ordered. Stool noted formed, dark green in color, no bleeding noted at this time. Cont care
--- NOTE | 2020-05-02 19:08 | NUR ---
Patient care endorsed to Jenna diaz. Patient laying comfortably in bed. No distress or sob noted. Patient denies pain, denies n/v, denies bleeding. Call light within reach.
[2020-05-02] MEDS: ATORVASTATIN 20 MG TAB PO SCH (21:20)
[2020-05-02 22:00] VITALS: BP 110/56
[2020-05-03] VITALS (10 sets, daily range): BP systolic 105–149; BP diastolic 55–80
[2020-05-03] MEDS: ACCU-CHEK COMFORT CURVE STRIP VI SCH ×4 (05:55→22:05)
[2020-05-03] MEDS: MEXILETINE HYDROCHLORIDE 150 MG CAP PO SCH ×3 (05:55→22:03)
[2020-05-03] MEDS: InsuLIN REG 1unit/0.01ml Soln (100units/ml) SC SCH ×4 (05:55→22:00)
[2020-05-03 06:37] LABS: Hemoglobin 7.5 g/dL (13.5-17.5); Lymphocytes # (auto) 0.8 10 ^3/uL (0.4-5.4); Red Cell Distribution Width 14.2 % (11.8-14.3); White Blood Cell 2.6 10^3/uL (4.4-10.8)
[2020-05-03 06:41] LABS: Basophils # (auto) 0.1 10 ^3/uL (0-0.2); Basophils % (auto) 2.5 % (0.0-2.0); Eosinophils # (auto) 0.2 10 ^3/uL (0-0.8); Eosinophils % (auto) 5.9 % (0.0-7.0); Hematocrit 21.5 % (41.0-53.0); Lymphocytes % (auto) 31.4 % (10.0-50.0); Mean Corpuscular Hemoglobin 35.8 pg (28.0-32.0); Mean Corpuscular Hgb Conc. 35.2 g/dL (32.0-36.0); Mean Corpuscular Volume 101.8 fL (80.0-100.0); Monocytes # (auto) 0.4 10 ^3/uL (0-1.3); Monocytes % (auto) 17.3 % (0.0-12.0); Neutrophils # (auto) 1.1 10 ^3/uL (1.6-8.6); Neutrophils % (auto) 42.9 % (37.0-80.0); Nucleated Red Blood Cells % 0.2 %; Platelet Count (auto) 84 10^3/uL (140-450); Red Blood Cells 2.11 10^6/uL (4.5-5.90)
[2020-05-03 06:43] LABS: Potassium 3.4 mmol/L (3.5-5.1)
[2020-05-03 06:59] LABS: BUN/Creatinine Ratio 26.7; Calcium 7.8 mg/dL (8.5-10.1); Magnesium 2.4 mg/dL (1.6-2.6)
--- NOTE | 2020-05-03 08:00 | NUR ---
ASSESSMENT NOTE PT IS ALERT ORIENTED X4, RESTING IN BED COMFORTABLY, NO DISTRESS NOTED, ABLE TO SELF REPOSITION AND VERBALIS HIS DEMANDS, DENIES ANY CHEST PAIN AT THIS TIME, PT USE HIS CANE NEEDED, BED SIDE COMMODE , CALL LIGHT WITHIN REACH, CONTINU FUNMILAYO FALL RISK PRECAUTIONS
[2020-05-03] MEDS: busPIRone HCL 10 MG TAB PO SCH ×2 (08:57→22:04)
[2020-05-03] MEDS: PANTOPRAZOLE 40 MG TAB PO SCH ×2 (08:57→22:04)
[2020-05-03] MEDS: DOCUSATE SOD 100 MG CAP PO SCH (08:57)
[2020-05-03] MEDS: LISINOPRIL 10 MG TAB PO SCH (08:58)
[2020-05-03] MEDS: CARVEDILOL 12.5 MG TAB PO SCH ×2 (08:59→22:04)
--- NOTE | 2020-05-03 09:04 | NUR ---
PT REPORTS THAT HE WALKS FINE AND DOES NOT NEED P.T.
[2020-05-03] MEDS: CLOPIDOGREL BISULFATE 75 MG TAB PO SCH (10:00)
--- NOTE | 2020-05-03 11:00 | NUR ---
DR HALLMAN GI AT BED SIDE SIGNING OFF, ADVISING PT TO FOLLOW UP OUTPATIENT FOR HEPATITIS C, PER DR HALLMAN NO SCOPING SINCE PT ON PLAVIX
[2020-05-03] MEDS: HYDROcodone-ACET 5/325MG TAB PO PRN (13:49)
--- NOTE | 2020-05-03 15:30 | NUR ---
DR LEZAMA IS HERE FOLLOWING UP ON PT, AWARE OF HGB LEVEL AND DR HALLMAN RECOMMENDATIONS, WITH NEW ORDERS TO TRANSFUSE ONE UNIT OF RBCS, AND PAGE DR ISABEL WITH A DISCHARGE CLEARANCE , NO ASPIRIN, FOR PT TO CONTINUE PLAVIX
--- NOTE | 2020-05-03 15:46 | NUR ---
PAGE DR ISABEL TO OBTAIN CARDIAC CLEARANCE
[2020-05-03 16:15] LABS: Hemoglobin 8.2 g/dL (13.5-17.5)
[2020-05-03 16:17] LABS: Hematocrit 23.2 % (41.0-53.0)
--- NOTE | 2020-05-03 16:24 | NUR ---
DR LEZAMA DID CALLED SAID THAT DR ISABEL CALLED HIM WITH DISCHARGE CLEARANCE, PT MAY DISCHARGE HOME AFTER THE BLOOD TRANSFUSION AND FOLLOW UP WITH THE PRIMARY IN ONE WEEK
[2020-05-03] MEDS: hydrOXYzine 25 MG TAB or CAP PO SCH (18:00)
--- NOTE | 2020-05-03 18:10 | NUR ---
BLOOD TRANSFUSION SIDE EFFECT COMPLICATION EDUCATION GIVEN TO PT VERBALIS UNDERSTANDING
--- NOTE | 2020-05-03 18:24 | NUR ---
IV insertion IV access obtained, via clean sterile technique by inserting 20 gauge catheter at after attempt(s). IV secured properly. No trauma to site. Patient tolerated procedure well.
--- NOTE | 2020-05-03 18:35 | NUR ---
BLOOD TRANSFUSION INITIATED AFTER PRE SET OF VS TAKEN
--- NOTE | 2020-05-03 18:35 | NUR ---
BLOOD TRANSFUSION INITIATED AFTER PRE SET OF VS TAKEN
--- NOTE | 2020-05-03 19:28 | NUR ---
REPORT GIVEN TO JUNIOR SOFTWARE DEVELOPER NURSE
[2020-05-03] MEDS: ATORVASTATIN 20 MG TAB PO SCH (22:04)
--- NOTE | 2020-05-06 12:21 | NUR ---
water commissioner 05/03/2020 Per consult home safety evaluation. No call or page on this patient. order has been sent to [facility]. Per Faviola patient has refused home safety eval. Addendum: 05/07/20 at 1622 by Tamika ZARAGOZA Amended: Links added.
[2020-05-13] MEDS ORDERED: ASPI-404 PO (18:19)
== END 2020-05-03 23:00 | disposition home health service (06) | DRG 303 ==
LOC: ER 16:21 → TELE 16:22 → TELE-EAST 22:52
PROVIDERS: ADMIT Hospitalist; ATTEND Internal Medicine
PROC: 30233N1 Transfusion of Nonautologous Red Blood Cells into Peripheral Vein, Percutaneous Approach (ICD-10-PCS; principal; 2020-05-03)
DX: I25.110 Atherosclerotic heart disease of native coronary artery with unstable angina pectoris (principal); R71.0 Precipitous drop in hematocrit; I47.2 Ventricular tachycardia; K92.2 Gastrointestinal hemorrhage, unspecified; R79.89 Other specified abnormal findings of blood chemistry; I11.0 Hypertensive heart disease with heart failure; F32.9 Major depressive disorder, single episode, unspecified; K82.4 Cholesterolosis of gallbladder; E78.00 Pure hypercholesterolemia, unspecified; Z79.02 Long term (current) use of antithrombotics/antiplatelets; Z82.49 Family history of ischemic heart disease and other diseases of the circulatory system; Z95.810 Presence of automatic (implantable) cardiac defibrillator; Z98.61 Coronary angioplasty status; Z79.899 Other long term (current) drug therapy; I50.9 Heart failure, unspecified
CPT/HCPCS: 36415; 71045; 76705; 80048; 80053; 80061; 82270; 82962; 83036; 83735; 83880; 84484; 85014; 85018; 85025; 85610; 85730; 86704; 86706; 86708; 86803; 86850; 86900; 86901; 86920; 87081; 87340; 93005; C9113; G0378; J1815; J2405

== ENCOUNTER 2020-05-13 13:54 | Inpatient (IN) | payer OTHER ==
[~2020-05-13] VITALS: Ht 167.6 cm; Wt 62.5 kg
[~2020-05-13 13:54] MED LIST changes: +CLOP75TA41 PO; +MAGN400C4 PO
[2020-05-13] MEDS ORDERED: SODIUM CHLORIDE 0.9% 500 ML IVB ONE (14:35)
[2020-05-13 15:00] LABS: Basophils # (auto) 0.1 10 ^3/uL (0-0.2); Basophils % (auto) 1.6 % (0.0-2.0); Eosinophils # (auto) 0.1 10 ^3/uL (0-0.8); Eosinophils % (auto) 1.4 % (0.0-7.0); Hematocrit 39.5 % (41.0-53.0); Hemoglobin 13.1 g/dL (13.5-17.5); Lymphocytes # (auto) 1.1 10 ^3/uL (0.4-5.4); Lymphocytes % (auto) 17.1 % (10.0-50.0); Mean Corpuscular Hemoglobin 32.6 pg (28.0-32.0); Mean Corpuscular Hgb Conc. 33.3 g/dL (32.0-36.0); Mean Corpuscular Volume 98.2 fL (80.0-100.0); Monocytes # (auto) 0.8 10 ^3/uL (0-1.3); Monocytes % (auto) 12.5 % (0.0-12.0); Neutrophils # (auto) 4.4 10 ^3/uL (1.6-8.6); Neutrophils % (auto) 67.4 % (37.0-80.0); Nucleated Red Blood Cells % 0.1 %; Platelet Count (auto) 207 10^3/uL (140-450); Red Blood Cells 4.02 10^6/uL (4.5-5.90); Red Cell Distribution Width 16.2 % (11.8-14.3); White Blood Cell 6.5 10^3/uL (4.4-10.8)
[2020-05-13 15:16] LABS: Albumin 3.8 g/dL (3.4-5.0); Calcium 8.9 mg/dL (8.5-10.1); Potassium 3.9 mmol/L (3.5-5.1)
[2020-05-13 15:20] LABS: BUN/Creatinine Ratio 11.8; Bilirubin, Total 0.8 mg/dL (0.2-1.0); Total Protein 8.2 g/dL (6.4-8.2)
[2020-05-13] MEDS ORDERED: ASPI-543 PO (18:19)
[2020-05-13] MEDS ORDERED: MEX150C PO (18:19)
[2020-05-13] MEDS ORDERED: traZODone HCL 50 MG TAB PO PRN (19:00)
[2020-05-13] MEDS ORDERED: MORPHINE SULF INJ 2 MG/ML SYRINGE 1ML IV PRN (19:00)
[2020-05-13] MEDS ORDERED: NITROGLYCERIN 0.4 MG SL TAB SL PRN (19:00)
--- NOTE | 2020-05-13 20:02 | NUR ---
Telemetry admit from ER Patient admitted to Telemetry unit. Patient oriented to primary RN, unit, room, bed, and unit policies regarding patient care and visiting hours. Patient now on continuous telemetry monitoring, tele box #60 and telemetry reading on arrival to unit is 80 bpm. Patient weighed by bed scale. Bed in lowest locked position with two side rails raised and call chin within reach. Instructed on POC and encouraged to use call chin for assistance, All questions and concerns addressed, patient verbalized understanding. will continue to monitor q1 hr and prn.
[2020-05-13 20:40] VITALS: BP 159/73
[2020-05-13 22:00] VITALS: BP 159/73
[2020-05-13] MEDS ORDERED: ATORVASTATIN 20 MG TAB PO SCH (22:00)
[2020-05-13] MEDS: MEXILETINE HYDROCHLORIDE 150 MG CAP PO SCH ×2 (22:00→22:41)
[2020-05-13] MEDS: CARVEDILOL 12.5 MG TAB PO SCH (22:41)
--- NOTE | 2020-05-13 22:46 | NUR ---
PATIENT REFUSED MED: PATIENT VERBALIZED CONCERN ABOUT TAKING HIS EVENING MEXITIL STATING THAT HE THINKS THIS IS THE REASON HE HAS BEEN SICK. EDUCATION PROVIDED, WILL CONTINUE TO MONITOR.
[2020-05-14 05:28] VITALS: BP 134/78
[2020-05-14] MEDS: MEXILETINE HYDROCHLORIDE 150 MG CAP PO SCH ×2 (05:56→14:00)
--- NOTE | 2020-05-14 05:56 | NUR ---
PATIENT REFUSES MED. PATIENT REFUSES SCHEDULED MEXILETINE STATING HE BELIEVES THIS IS THE REASON HE GOT SICK AND WILL ONLY TAKE IT AGAIN ONCE HE SPEAKS TO THE DOCTOR ABOUT HIS CONCERNS. EDUCATION PROVIDED ON BENEFITS AND RISKS OF NOT TAKING MEDICATION, HE VERBALIZES UNDERSTANDING BUT STILL DOES NOT WANT TO TAKE MED. WILL ENDORSE TO UYEN THOMPSON.
[2020-05-14 06:04] LABS: Urine Bacteria NONE SEEN /hpf (None Seen); Urine Blood Negative /uL (Negative); Urine Mucus FEW (None Seen); Urine Specific Gravity 1.021 (1.001-1.035); Urine WBC 2 /hpf (0 - 3)
--- NOTE | 2020-05-14 08:00 | NUR ---
RECEIVED PATIENT ALERT AND ORIENTED X4, NOT IN DISTRESS, CLEAR LS IN BILATERAL UPPER AND LOWER LUNG LOBES, RR=18 SAT=96%, DEEP BREATHING AND COUGHING WAS ENCOURAGED, DEMONSTRATED AND VERBALIZED UNDERSTANDING, DENIED CP AND SOB, SR R=74 N TELE MONITOR, ABDOMEN SOFT WITH ACTIVE BS, TOLERATED 85% OF PROVIDED BREAKFAST TRAY, LAST BM=05/13/20 REPORTED, SKIN INTACT WARM TO TOUCH, REDIAL AND PEDAL PULSES PALPABLE, CAP REFILL <3 SECONDS, RESTING ON BED AND WATCHING TV AT THIS MOMENT, HEAD OF BED ELEVATED, BED ON LOW POSTION, RAILS UP X2, CALL LIGHT ON REACH, PENDING GI CONSULT, WILL CONTINUE MONITORING.
[2020-05-14 09:05] VITALS: BP 115/66
[2020-05-14] MEDS ORDERED: CLOPIDOGREL BISULFATE 75 MG TAB PO SCH (10:00)
[2020-05-14] MEDS ORDERED: PANTOPRAZOLE 40 MG TAB PO SCH (10:00)
[2020-05-14] MEDS ORDERED: ASPirin 81 mg TAB PO SCH (10:00)
[2020-05-14] MEDS: CARVEDILOL 12.5 MG TAB PO SCH (10:56)
--- NOTE | 2020-05-14 12:15 | NUR ---
CAME FROM ER, VS T=100.5 RR=20 SAT=97% P=110 TW=260/64, COOLING MEASURES PROVIDED, PRE OP CONTACTED FOR PENDING SURGERY FOLLOW UP, KEEP NPO ORDERED, WILL CONTINUE MONITORING. Addendum: 05/14/20 at 1337 by Rahel Ponce RN WRONG PATIENT
[2020-05-14] MEDS ORDERED: PANT40TA2 PO (12:16)
[2020-05-14] MEDS ORDERED: MEMA5TAB2 PO (12:16)
--- NOTE | 2020-05-14 12:30 | NUR ---
CAME FROM ER ON WC, ALERT AND ORIENTED, NOT IN DISTRESS, CLEAR LS IN BILATERAL UPPER AND LOWER LUNG LOBES,DEEP BREATHING AND COUGHING ENCOURAGED, DEMONSTRATED AND VERBALIZED UNDERSTANDING, RR=20SAT=97%, S TACH ON TELE MONITOR R=110, ABDOMEN SOFT AND ROUND WITH HYPOACTIVE BS, LAST BM=01/12/20 REPORTED, KEEP NPO ORDERED, SKIN INTACT WARM TO TOUCH, RADIAL AND PEDAL PULSES PALPABLE, CAP REFILL <3 SECONDS, AMBULATED TO BR AND BACK TO THE BED, HEAD OF BED ELEVATED, BED ON LOW POSITION, RAILS UP X2, CALL LIGHT ON REACH, POTASSIUM L=3.1, 1ST K RIDER WAS GIVEN IN ER REPORTED, 2ND K RIDER IS INFUSING ORDERED, PENDING OR, WILL CONTINUE MONITORING. Addendum: 05/14/20 at 1342 by Rahel Ponce RN WRONG PATIENT
--- NOTE | 2020-05-14 12:32 | NUR ---
I faxed outpatient GI follow up request to [facility].
[2020-05-14 13:00] VITALS: BP 116/63
--- NOTE | 2020-05-14 13:00 | NUR ---
NOT IN DISTRESS, CONSENT FORM AND CHECK LIST COMPLETED AND ON CHART, WENT ON BED TO OR, WILL CONTINUE FOLLOW UP. Addendum: 05/14/20 at 1340 by Rahel Ponce RN WRONG PATIENT
--- NOTE | 2020-05-14 13:23 | NUR ---
I called [facility] Customer Operations Specialist Kianna [phone]-she received the order for outpatient GI [id number] will take care of it and will contact patient when appointment is made.
[2020-05-14] MEDS: SUCRALFATE 1 GM/10 ML ORAL SUSP PO SCH ×2 (14:46→17:00)
--- NOTE | 2020-05-14 15:49 | NUR ---
DR. KURTIS TORREZ WAS CALLED AND LEFT A MESSAGE FOR GI CLEARANCE FOLLOW UP AND UPDATES, WAITING FOR CALL BACK, WILL CONTINUE MONITORING.
[2020-05-14 17:00] VITALS: BP 133/74
--- NOTE | 2020-05-14 19:25 | NUR ---
PENDING D/C HOME, BASSEM MCWILLIAMS WAS CALLED ON [phone] FOR D/C HOME TODAY UPDATE, DAUGHTER WILL ADVISORY SOFTWARE ENGINEER THE PATIENT ANY TIME REPORTED, D/C ORDERED AT THE END OF THE SHIFT, REPORT WILL BE GIVEN TO THE ELECTRONIC WIRER RN.
--- NOTE | 2020-05-14 19:30 | NUR ---
Opening Shift Note Assumed care of patient, awake and alert. No S/S of distress/SOB or pain. Insructed on POC and to callfor assist PRN, will continue to monitor for changes Q1hr and PRN. Fall and safety precautions in place. Call light within reach. Daughter called and informed of patient's pending discharge. DaughterAdithya, stated will come to pickle solution maker patient
--- NOTE | 2020-05-14 19:33 | NUR ---
REPORT WAS GIVEN TO THE MULTIPLE DRILL OPERATOR RN, MULTIPLE DRILL OPERATOR NURSE WILL D/C PATIENT REPORTED, DAUGHTER'S CONTACT INFORMATION WAS PROVIDED FOR D/C TRANSPORTATION, VERBALIZED UNDERSTANDING, NOT IN DISTRESS, DENIED PAIN, RESTING ON BED.
--- NOTE | 2020-05-14 20:28 | NUR ---
DISCHARGE Discharge instructions given as ordered. Encourage to follow up with PMD as instructed. All questions and concerns addressed. Patient verbalized understanding. Home medications held in Pharmacy returned to patient. IV removed with catheter intact, pressure dressing applied. Telemetry unit returned to ICU. Patient taken to vehicle via wheelchair with all personal belongings, accompanied by staff. No distress noted at time of departure.
== END 2020-05-14 20:28 | disposition home or self-care (01) | DRG 392 ==
LOC: ER 13:54 → TELE 13:55 → TELE-WESTW 20:02
PROVIDERS: ADMIT Nurse Practitioner Acute Care; ATTEND Internal Medicine
DX: R10.9 Unspecified abdominal pain (principal); I47.2 Ventricular tachycardia; B19.20 Unspecified viral hepatitis C without hepatic coma; D64.9 Anemia, unspecified; F41.9 Anxiety disorder, unspecified; I25.10 Atherosclerotic heart disease of native coronary artery without angina pectoris; I50.9 Heart failure, unspecified; F32.9 Major depressive disorder, single episode, unspecified; E78.5 Hyperlipidemia, unspecified; F17.210 Nicotine dependence, cigarettes, uncomplicated; R10.13 Epigastric pain; T50.905A Adverse effect of unspecified drugs, medicaments and biological substances, initial encounter; G47.00 Insomnia, unspecified; I11.0 Hypertensive heart disease with heart failure; Z95.810 Presence of automatic (implantable) cardiac defibrillator; Z79.82 Long term (current) use of aspirin; Z79.899 Other long term (current) drug therapy
CPT/HCPCS: 36415; 74176; 80053; 81001; 83690; 84484; 85025; 86301; 87081; 93005; G0378

== ENCOUNTER 2020-07-12 15:38 | Inpatient (IN) | payer OTHER ==
[~2020-07-12] VITALS: Ht 167.6 cm; Wt 56.7 kg
[~2020-07-12 15:38] MED LIST changes: +ASPI-543 PO; +MEMA5TAB2 PO; +MEX150C PO; +PANT40TA2 PO
[2020-07-12 17:11] LABS: Basophils # (auto) 0.1 10 ^3/uL (0-0.2); Basophils % (auto) 1.4 % (0.0-2.0); Eosinophils # (auto) 0.1 10 ^3/uL (0-0.8); Eosinophils % (auto) 1.8 % (0.0-7.0); Hematocrit 36.5 % (41.0-53.0); Hemoglobin 12.2 g/dL (13.5-17.5); Lymphocytes # (auto) 1.3 10 ^3/uL (0.4-5.4); Lymphocytes % (auto) 29.3 % (10.0-50.0); Mean Corpuscular Hemoglobin 32.4 pg (28.0-32.0); Mean Corpuscular Hgb Conc. 33.6 g/dL (32.0-36.0); Mean Corpuscular Volume 96.5 fL (80.0-100.0); Monocytes # (auto) 0.7 10 ^3/uL (0-1.3); Monocytes % (auto) 15.7 % (0.0-12.0); Neutrophils # (auto) 2.3 10 ^3/uL (1.6-8.6); Neutrophils % (auto) 51.8 % (37.0-80.0); Nucleated Red Blood Cells % 0.1 %; Platelet Count (auto) 97 10^3/uL (140-450); Red Blood Cells 3.78 10^6/uL (4.5-5.90); Red Cell Distribution Width 14.9 % (11.8-14.3); White Blood Cell 4.4 10^3/uL (4.4-10.8)
[2020-07-12 17:29] LABS: Albumin 3.1 g/dL (3.4-5.0); Calcium 7.6 mg/dL (8.5-10.1); Magnesium 2.3 mg/dL (1.6-2.6); Potassium 3.5 mmol/L (3.5-5.1)
[2020-07-12 17:30] LABS: Acetaminophen < 2.0 ug/mL (10-30); Salicylate < 1.7 mg/dL (2.8-20.0)
[2020-07-12 17:37] LABS: BUN/Creatinine Ratio 12.5; Bilirubin, Total 0.5 mg/dL (0.2-1.0); Total Protein 6.5 g/dL (6.4-8.2)
[2020-07-12 18:15] LABS: Urine Bacteria NONE SEEN /hpf (None Seen); Urine Blood Negative /uL (Negative); Urine Specific Gravity 1.013 (1.001-1.035); Urine WBC 2 /hpf (0 - 3)
[2020-07-12 18:20] LABS: Amphetamine Screen, Urine NEGATIVE (NEGATIVE); Barbiturate Scree,Urine NEGATIVE (NEGATIVE); Benzodiazephine Screen, Urine NEGATIVE (NEGATIVE); Cannabinoid Screen, Urine NEGATIVE (NEGATIVE); Cocaine Screen, Urine NEGATIVE (NEGATIVE); Opiate Scree,Urine NEGATIVE (NEGATIVE); Phencyclidine Screen, Urine NEGATIVE (NEGATIVE)
[2020-07-12] MEDS ORDERED: LORazepam 2MG/ML-1ML VIAL IV ONE (22:45)
[2020-07-12 23:43] LABS: Albumin 3.3 g/dL (3.4-5.0); Calcium 7.2 mg/dL (8.5-10.1)
[2020-07-12 23:46] LABS: BUN/Creatinine Ratio 9.8; Bilirubin, Total 0.7 mg/dL (0.2-1.0); Total Protein 7.2 g/dL (6.4-8.2)
[2020-07-13] MEDS ORDERED: SODIUM BICARBONATE 8.4 % INJ 50ML VIAL IV ONE ×2 (00:45→02:00)
[2020-07-13] MEDS ORDERED: ACETYLCYSTEINE ORAL for CIN 20%(200MG/ML) 4ML PO ONE (00:45)
[2020-07-13] MEDS ORDERED: LORazepam 2MG/ML-1ML VIAL IV ONE (02:30)
[2020-07-13] MEDS ORDERED: hydrALAZINE HCL 20 MG/ML VL IV ONE (07:00)
[2020-07-13] MEDS ORDERED: NITROGLYCERIN 0.4 MG SL TAB SL PRN (10:00)
[2020-07-13] MEDS ORDERED: ONDANSETRON HCL 4 MG/2 ML VIAL IV PRN (10:00)
[2020-07-13] MEDS ORDERED: D5W/SOD CHLO 0.9% 1,000 ML IV ONE (10:00)
[2020-07-13] MEDS ORDERED: MORPHINE SULF INJ 2 MG/ML SYRINGE 1ML IV PRN ×2 (10:00)
[2020-07-13 10:26] LABS: Basophils # (auto) 0 10 ^3/uL (0-0.2); Basophils % (auto) 0.4 % (0.0-2.0); Eosinophils # (auto) 0 10 ^3/uL (0-0.8); Eosinophils % (auto) 0.1 % (0.0-7.0); Hematocrit 38.7 % (41.0-53.0); Hemoglobin 13.4 g/dL (13.5-17.5); Lymphocytes # (auto) 0.8 10 ^3/uL (0.4-5.4); Lymphocytes % (auto) 9.3 % (10.0-50.0); Mean Corpuscular Hemoglobin 32.7 pg (28.0-32.0); Mean Corpuscular Hgb Conc. 34.5 g/dL (32.0-36.0); Mean Corpuscular Volume 94.7 fL (80.0-100.0); Monocytes # (auto) 0.9 10 ^3/uL (0-1.3); Monocytes % (auto) 10.6 % (0.0-12.0); Neutrophils # (auto) 6.9 10 ^3/uL (1.6-8.6); Neutrophils % (auto) 79.6 % (37.0-80.0); Platelet Count (auto) 110 10^3/uL (140-450); Red Blood Cells 4.09 10^6/uL (4.5-5.90); Red Cell Distribution Width 14.9 % (11.8-14.3); White Blood Cell 8.6 10^3/uL (4.4-10.8)
[2020-07-13 10:46] LABS: Albumin 3.6 g/dL (3.4-5.0); Calcium 8.1 mg/dL (8.5-10.1); Potassium 3.5 mmol/L (3.5-5.1)
[2020-07-13 10:50] LABS: BUN/Creatinine Ratio 10.6; Bilirubin, Total 1.2 mg/dL (0.2-1.0); Total Protein 7.6 g/dL (6.4-8.2)
[2020-07-13] MEDS: PANTOPRAZOLE 40 MG/10 ML VIAL INJ IV SCH (11:21)
[2020-07-13] MEDS: ENOXAPARIN SOD 40 MG/0.4 ML SYRINGE SC SCH (11:21)
[2020-07-13 11:24] LABS: Amylase 63 U/L (25-115); Blood Alcohol < 3.0 mg/dL (0-5); Lipase 120 U/L (73-393)
[2020-07-13] MEDS: busPIRone HCL 10 MG TAB PO SCH (21:40)
[2020-07-13] MEDS: ATORVASTATIN 20 MG TAB PO SCH (21:41)
[2020-07-13] MEDS: MEMANTINE HCL 5 MG TAB PO SCH (21:41)
[2020-07-13] MEDS: PANTOPRAZOLE 40 MG TAB PO SCH (21:41)
[2020-07-13] MEDS: CARVEDILOL 12.5 MG TAB PO SCH (22:04)
[2020-07-14 07:33] LABS: Basophils # (auto) 0 10 ^3/uL (0-0.2); Basophils % (auto) 0.7 % (0.0-2.0); Eosinophils # (auto) 0 10 ^3/uL (0-0.8); Eosinophils % (auto) 0.8 % (0.0-7.0); Hemoglobin 13.1 g/dL (13.5-17.5); Lymphocytes # (auto) 0.8 10 ^3/uL (0.4-5.4); Lymphocytes % (auto) 16.7 % (10.0-50.0); Mean Corpuscular Hemoglobin 32.1 pg (28.0-32.0); Mean Corpuscular Hgb Conc. 33.6 g/dL (32.0-36.0); Mean Corpuscular Volume 95.3 fL (80.0-100.0); Monocytes # (auto) 0.7 10 ^3/uL (0-1.3); Monocytes % (auto) 15.1 % (0.0-12.0); Neutrophils # (auto) 3.2 10 ^3/uL (1.6-8.6); Neutrophils % (auto) 66.7 % (37.0-80.0); Platelet Count (auto) 90 10^3/uL (140-450); Red Blood Cells 4.09 10^6/uL (4.5-5.90); Red Cell Distribution Width 15.2 % (11.8-14.3); White Blood Cell 4.7 10^3/uL (4.4-10.8)
[2020-07-14 07:55] LABS: Albumin 3.1 g/dL (3.4-5.0); Calcium 8.1 mg/dL (8.5-10.1)
[2020-07-14 07:59] LABS: BUN/Creatinine Ratio 10.2; Bilirubin, Total 1.2 mg/dL (0.2-1.0)
[2020-07-14 08:03] LABS: INR 1.06 (0.9-1.15)
[2020-07-14] MEDS: CARVEDILOL 12.5 MG TAB PO SCH ×2 (09:44→22:00)
[2020-07-14] MEDS: PANTOPRAZOLE 40 MG/10 ML VIAL INJ IV SCH (09:45)
[2020-07-14] MEDS: MEMANTINE HCL 5 MG TAB PO SCH ×2 (09:45→22:00)
[2020-07-14] MEDS: PANTOPRAZOLE 40 MG TAB PO SCH ×2 (09:45→22:00)
[2020-07-14] MEDS: ENOXAPARIN SOD 40 MG/0.4 ML SYRINGE SC SCH (09:45)
[2020-07-14] MEDS: busPIRone HCL 10 MG TAB PO SCH ×2 (09:45→22:00)
[2020-07-14] MEDS: MAGNESIUM OXIDE 400 MG TAB PO SCH (09:45)
[2020-07-14] MEDS: CLOPIDOGREL BISULFATE 75 MG TAB PO SCH (09:45)
[2020-07-14] MEDS: ASPirin-EC 81 mg tab PO SCH (09:45)
[2020-07-14] MEDS ORDERED: MAGNESIUM OXIDE PO SCH (10:00)
[2020-07-14] MEDS ORDERED: POTASSIUM CHL 20 Meq TABLET PO ONE (15:30)
[2020-07-14] MEDS: SODIUM CHLORIDE 0.9% 1,000 ML IV SCH (15:45)
[2020-07-14] MEDS: ATORVASTATIN 20 MG TAB PO SCH (22:00)
[2020-07-15 06:43] LABS: Basophils # (auto) 0 10 ^3/uL (0-0.2); Basophils % (auto) 0.7 % (0.0-2.0); Eosinophils # (auto) 0 10 ^3/uL (0-0.8); Eosinophils % (auto) 1.4 % (0.0-7.0); Hematocrit 35.1 % (41.0-53.0); Hemoglobin 12.1 g/dL (13.5-17.5); Lymphocytes # (auto) 0.5 10 ^3/uL (0.4-5.4); Mean Corpuscular Hemoglobin 32.6 pg (28.0-32.0); Mean Corpuscular Hgb Conc. 34.4 g/dL (32.0-36.0); Mean Corpuscular Volume 94.9 fL (80.0-100.0); Monocytes # (auto) 0.5 10 ^3/uL (0-1.3); Monocytes % (auto) 13.6 % (0.0-12.0); Neutrophils # (auto) 2.4 10 ^3/uL (1.6-8.6); Neutrophils % (auto) 69.3 % (37.0-80.0); Nucleated Red Blood Cells % 0.3 %; Platelet Count (auto) 81 10^3/uL (140-450); Red Cell Distribution Width 14.9 % (11.8-14.3); White Blood Cell 3.5 10^3/uL (4.4-10.8)
[2020-07-15 06:55] LABS: Calcium 7.7 mg/dL (8.5-10.1)
[2020-07-15 07:01] LABS: BUN/Creatinine Ratio 12.8; Bilirubin, Total 1.3 mg/dL (0.2-1.0); Total Protein 6.5 g/dL (6.4-8.2)
[2020-07-15 07:11] LABS: Potassium 2.9 mmol/L (3.5-5.1)
[2020-07-15] MEDS ORDERED: POTASSIUM CHL 20MEQ/100ML 100 ML IV ONE ×2 (10:00→11:30)
[2020-07-15] MEDS: ENOXAPARIN SOD 40 MG/0.4 ML SYRINGE SC SCH (10:41)
[2020-07-15] MEDS: busPIRone HCL 10 MG TAB PO SCH (10:42)
[2020-07-15] MEDS: CLOPIDOGREL BISULFATE 75 MG TAB PO SCH (10:42)
[2020-07-15] MEDS: ASPirin-EC 81 mg tab PO SCH (10:42)
[2020-07-15] MEDS: MEMANTINE HCL 5 MG TAB PO SCH (10:42)
[2020-07-15] MEDS: MAGNESIUM OXIDE 400 MG TAB PO SCH (10:42)
[2020-07-15] MEDS: PANTOPRAZOLE 40 MG/10 ML VIAL INJ IV SCH (10:45)
[2020-07-15 14:14] LABS: Hepatitis A Ab IgM Negative
[2020-07-15 14:15] LABS: Hepatitis B Core IgM Negative; Hepatitis B Surface Antigen Negative (Negative)
[2020-07-15 14:16] LABS: Hepatitis C Antibody Positive (Negative)
[2020-07-15 14:47] LABS: Hepatitis B Surface Antibody Negative
[2020-07-15 15:26] LABS: Hepatitis A Total Antibody Negative
[2020-07-15 15:42] LABS: Hepatitis B Core Total AB Negative; Hepatitis B Surface Antigen Negative (Negative)
[2020-07-15 16:00] LABS: Hepatitis C Antibody Positive (Negative)
[2020-07-15] MEDS: CARVEDILOL 12.5 MG TAB PO SCH (17:02)
[2020-07-16] MEDS: busPIRone HCL 10 MG TAB PO SCH ×3 (00:34→23:59)
[2020-07-16] MEDS: SODIUM CHLORIDE 0.9% 1,000 ML IV SCH ×4 (00:34→21:05)
[2020-07-16] MEDS: MEMANTINE HCL 5 MG TAB PO SCH ×2 (00:35→10:29)
[2020-07-16] MEDS: CARVEDILOL 12.5 MG TAB PO SCH ×2 (00:45→10:30)
[2020-07-16 08:00] LABS: Basophils # (auto) 0 10 ^3/uL (0-0.2); Basophils % (auto) 0.9 % (0.0-2.0); Eosinophils # (auto) 0.1 10 ^3/uL (0-0.8); Eosinophils % (auto) 1.7 % (0.0-7.0); Hematocrit 39.7 % (41.0-53.0); Hemoglobin 13.5 g/dL (13.5-17.5); Lymphocytes # (auto) 0.5 10 ^3/uL (0.4-5.4); Lymphocytes % (auto) 13.6 % (10.0-50.0); Mean Corpuscular Hemoglobin 32.9 pg (28.0-32.0); Mean Corpuscular Hgb Conc. 34.1 g/dL (32.0-36.0); Mean Corpuscular Volume 96.5 fL (80.0-100.0); Monocytes # (auto) 0.4 10 ^3/uL (0-1.3); Monocytes % (auto) 11.4 % (0.0-12.0); Neutrophils # (auto) 2.6 10 ^3/uL (1.6-8.6); Neutrophils % (auto) 72.4 % (37.0-80.0); Nucleated Red Blood Cells % 0.1 %; Platelet Count (auto) 76 10^3/uL (140-450); Red Blood Cells 4.12 10^6/uL (4.5-5.90); Red Cell Distribution Width 14.9 % (11.8-14.3); White Blood Cell 3.6 10^3/uL (4.4-10.8)
[2020-07-16 08:27] LABS: Albumin 3.1 g/dL (3.4-5.0); Calcium 8.1 mg/dL (8.5-10.1); Magnesium 1.9 mg/dL (1.6-2.6); Potassium 3.2 mmol/L (3.5-5.1)
[2020-07-16 08:34] LABS: BUN/Creatinine Ratio 10.1; Bilirubin, Total 1.3 mg/dL (0.2-1.0)
[2020-07-16] MEDS: ENOXAPARIN SOD 40 MG/0.4 ML SYRINGE SC SCH (10:29)
[2020-07-16] MEDS: PANTOPRAZOLE 40 MG/10 ML VIAL INJ IV SCH (10:29)
[2020-07-16] MEDS: CLOPIDOGREL BISULFATE 75 MG TAB PO SCH (10:29)
[2020-07-16] MEDS: MAGNESIUM OXIDE 400 MG TAB PO SCH (10:29)
[2020-07-16] MEDS: ASPirin-EC 81 mg tab PO SCH (10:29)
[2020-07-16] MEDS ORDERED: IOHEXOL 300 MG/ML 100ML BOTTLE IJ ONE (10:31)
[2020-07-16] MEDS ORDERED: POTASSIUM CHL 20 Meq TABLET PO ONE (16:00)
[2020-07-17 06:19] LABS: Basophils # (auto) 0.1 10 ^3/uL (0-0.2); Basophils % (auto) 1.4 % (0.0-2.0); Eosinophils # (auto) 0.1 10 ^3/uL (0-0.8); Eosinophils % (auto) 1.3 % (0.0-7.0); Hemoglobin 11.9 g/dL (13.5-17.5); Lymphocytes % (auto) 20.1 % (10.0-50.0); Mean Corpuscular Hemoglobin 33.2 pg (28.0-32.0); Mean Corpuscular Hgb Conc. 34.9 g/dL (32.0-36.0); Mean Corpuscular Volume 95.1 fL (80.0-100.0); Monocytes # (auto) 0.7 10 ^3/uL (0-1.3); Monocytes % (auto) 14.6 % (0.0-12.0); Neutrophils # (auto) 3.2 10 ^3/uL (1.6-8.6); Neutrophils % (auto) 62.6 % (37.0-80.0); Nucleated Red Blood Cells % 0.1 %; Platelet Count (auto) 82 10^3/uL (140-450); Red Blood Cells 3.57 10^6/uL (4.5-5.90); Red Cell Distribution Width 15.1 % (11.8-14.3); White Blood Cell 5.1 10^3/uL (4.4-10.8)
[2020-07-17 06:41] LABS: Albumin 2.9 g/dL (3.4-5.0); Calcium 7.8 mg/dL (8.5-10.1); Magnesium 1.8 mg/dL (1.6-2.6); Potassium 4.2 mmol/L (3.5-5.1)
[2020-07-17 06:46] LABS: BUN/Creatinine Ratio 11.2; Bilirubin, Total 0.9 mg/dL (0.2-1.0); Total Protein 6.3 g/dL (6.4-8.2)
[2020-07-17] MEDS: PANTOPRAZOLE 40 MG/10 ML VIAL INJ IV SCH (09:01)
[2020-07-17] MEDS: MEMANTINE HCL 5 MG TAB PO SCH ×2 (09:02)
[2020-07-17] MEDS: CLOPIDOGREL BISULFATE 75 MG TAB PO SCH (09:02)
[2020-07-17] MEDS: MAGNESIUM OXIDE 400 MG TAB PO SCH (09:02)
[2020-07-17] MEDS: CARVEDILOL 12.5 MG TAB PO SCH ×2 (09:06)
[2020-07-17] MEDS: ASPirin-EC 81 mg tab PO SCH (09:06)
[2020-07-17] MEDS: busPIRone HCL 10 MG TAB PO SCH (09:07)
[2020-07-17] MEDS: SODIUM CHLORIDE 0.9% 1,000 ML IV SCH (10:25)
--- NOTE | 2020-07-17 15:30 | NUR ---
Spoke with Art at [facility] regrading the psych transfer and gave him the hospital recommendations that were given to me by Kianna HAN from [facility], stated I would fax him the clinical packet and he stated he would chart in [employer] so I could see that he received the packet.
--- NOTE | 2020-07-17 15:49 | NUR ---
Faxed to [facility], face sheet, [phone], Tele psych report, progress notes, discharge summary, labs, med list, x-rays, H&P, request to transfer to psych facility
[2020-07-17] MEDS ORDERED: CLINDAMYCIN 600MG IV 50 ML IV ONE (17:30)
[2020-07-17] MEDS ORDERED: cefTRIAXone 1GM/50ML D5W 50 ML IV ONE (17:30)
[2020-07-17] MEDS ORDERED: HYDROcodone-ACET 5/325MG TAB PO ONE (17:30)
[2020-07-17 20:30] VITALS: BP 136/70
[2020-07-18] MEDS ORDERED: SERTRALINE HCL 50 MG TAB PO SCH (10:00)
== END 2020-07-17 21:56 | disposition short-term general hospital (02) | DRG 918 ==
LOC: EDBD 15:38 → ER 15:38 → EDUNIT# 15:38 → TELE 15:39
PROVIDERS: ADMIT Internal Medicine; ATTEND Internal Medicine
DX: T46.2X2A Poisoning by other antidysrhythmic drugs, intentional self-harm, initial encounter (principal); E87.1 Hypo-osmolality and hyponatremia; I42.9 Cardiomyopathy, unspecified; R45.851 Suicidal ideations; F10.129 Alcohol abuse with intoxication, unspecified; E78.5 Hyperlipidemia, unspecified; F17.210 Nicotine dependence, cigarettes, uncomplicated; I11.0 Hypertensive heart disease with heart failure; I25.10 Atherosclerotic heart disease of native coronary artery without angina pectoris; I50.9 Heart failure, unspecified; K70.9 Alcoholic liver disease, unspecified; K74.60 Unspecified cirrhosis of liver; B19.20 Unspecified viral hepatitis C without hepatic coma; F32.9 Major depressive disorder, single episode, unspecified; R74.0 Nonspecific elevation of levels of transaminase and lactic acid dehydrogenase [LDH]; Y90.6 Blood alcohol level of 120-199 mg/100 ml; Z95.0 Presence of cardiac pacemaker; Z98.61 Coronary angioplasty status; Y92.89 Other specified places as the place of occurrence of the external cause; Z20.828 Contact with and (suspected) exposure to other viral communicable diseases
CPT/HCPCS: 36415; 70450; 71045; 73200; 74177; 76705; 80053; 80074; 80307; 80320; 80329; 81001; 82105; 82140; 82150; 83690; 83735; 84100; 85025; 85610; 86704; 86706; 86708; 86803; 87340; 93005; 93306; 99291; C9113; G0378; J0696; J3480; J3490

== ENCOUNTER 2020-08-16 14:05 | Inpatient (IN) | payer OTHER ==
[~2020-08-16] VITALS: Ht 182.9 cm; Wt 61.6 kg
[2020-08-16] MEDS ORDERED: SODIUM CHLORIDE 0.9% 1,000 ML IV ONE (14:14)
[2020-08-16] MEDS ORDERED: cefTRIAXone 1GM/50ML D5W 50 ML IV ONE (14:15)
[2020-08-16] MEDS ORDERED: cloNIDine HCL 0.1 MG TAB PO ONE (14:15)
[2020-08-16 14:55] LABS: Basophils # (auto) 0.1 10 ^3/uL (0-0.2); Basophils % (auto) 1.2 % (0.0-2.0); Eosinophils # (auto) 0.1 10 ^3/uL (0-0.8); Eosinophils % (auto) 1.6 % (0.0-7.0); Hemoglobin 11.8 g/dL (13.5-17.5); Lymphocytes # (auto) 0.7 10 ^3/uL (0.4-5.4); Lymphocytes % (auto) 8.6 % (10.0-50.0); Mean Corpuscular Hemoglobin 32.9 pg (28.0-32.0); Mean Corpuscular Hgb Conc. 33.7 g/dL (32.0-36.0); Mean Corpuscular Volume 97.5 fL (80.0-100.0); Monocytes # (auto) 0.7 10 ^3/uL (0-1.3); Monocytes % (auto) 8.4 % (0.0-12.0); Neutrophils # (auto) 6.3 10 ^3/uL (1.6-8.6); Neutrophils % (auto) 80.2 % (37.0-80.0); Platelet Count (auto) 107 10^3/uL (140-450); Red Blood Cells 3.59 10^6/uL (4.5-5.90); White Blood Cell 7.8 10^3/uL (4.4-10.8)
[2020-08-16 15:16] LABS: Calcium 8.1 mg/dL (8.5-10.1)
[2020-08-16 15:24] LABS: Albumin 3.3 g/dL (3.4-5.0); BUN/Creatinine Ratio 15.1; Bilirubin, Total 0.8 mg/dL (0.2-1.0); CRP High Sensitivity 0.06 mg/dL (< 0.3); Total Protein 6.8 g/dL (6.4-8.2)
[2020-08-16 15:26] LABS: INR 1.1 (0.9-1.15); Partial Thromboplastin Time 28.9 sec (23.0-31.2)
[2020-08-16] MEDS: SODIUM CHLORIDE 0.9% 1,000 ML IV SCH (18:45)
[2020-08-16] MEDS ORDERED: LORazepam 0.5 MG TAB PO PRN (18:45)
[2020-08-16] MEDS ORDERED: MORPHINE SULF INJ 2 MG/ML SYRINGE 1ML IV PRN (18:45)
[2020-08-16] MEDS ORDERED: NITROGLYCERIN 0.4 MG SL TAB SL PRN (18:45)
[2020-08-16] MEDS ORDERED: hydrALAZINE HCL 20 MG/ML VL IV PRN (18:45)
[2020-08-16] MEDS ORDERED: DOCUSATE CALCIUM 240 MG CAP PO PRN (18:45)
[2020-08-16] MEDS ORDERED: ACETAMINOPHEN 325 MG TAB PO PRN (19:00)
[2020-08-16 21:50] VITALS: BP 149/87
--- NOTE | 2020-08-16 21:50 | NUR ---
Telemetry admit from ER SHAREE TSE admitted to Telemetry unit after SBAR received. Patient oriented to SAV CADET RN primary RN, MST unit, room 232, bed, and unit policies regarding patient care and visiting hours. Patient now on continuous telemetry monitoring, tele box #2 and telemetry reading on arrival to unit is sinus rhythm at 70. Patient weighed by bed scale and encouraged to call if they need something. All questions and concerns addressed, patient verbalized understanding. Note: Patient on room air with even and unlabored respirations, no S/S of distress SOB or pain. Patient able to turn in bed independently, bed in lowest locked position, side rails up x2, and call light within reach.
[2020-08-16] MEDS: busPIRone HCL 10 MG TAB PO SCH (22:29)
[2020-08-16] MEDS: ATORVASTATIN 20 MG TAB PO SCH (22:29)
[2020-08-16] MEDS: CARVEDILOL 12.5 MG TAB PO SCH (22:30)
[2020-08-16] MEDS: MEMANTINE HCL 5 MG TAB PO SCH (22:30)
[2020-08-16] MEDS: MEXILETINE HYDROCHLORIDE 150 MG CAP PO SCH (22:40)
[2020-08-17] MEDS: MEXILETINE HYDROCHLORIDE 150 MG CAP PO SCH ×3 (05:44→23:12)
[2020-08-17 06:00] VITALS: BP 136/75
[2020-08-17 08:00] VITALS: BP 132/71
[2020-08-17 08:24] LABS: Basophils # (auto) 0.1 10 ^3/uL (0-0.2); Basophils % (auto) 1.6 % (0.0-2.0); Eosinophils # (auto) 0.1 10 ^3/uL (0-0.8); Eosinophils % (auto) 2.8 % (0.0-7.0); Hematocrit 32.1 % (41.0-53.0); Hemoglobin 11.1 g/dL (13.5-17.5); Lymphocytes # (auto) 0.8 10 ^3/uL (0.4-5.4); Lymphocytes % (auto) 26.5 % (10.0-50.0); Mean Corpuscular Hemoglobin 33.6 pg (28.0-32.0); Mean Corpuscular Hgb Conc. 34.4 g/dL (32.0-36.0); Mean Corpuscular Volume 97.8 fL (80.0-100.0); Monocytes # (auto) 0.4 10 ^3/uL (0-1.3); Monocytes % (auto) 12.8 % (0.0-12.0); Neutrophils # (auto) 1.8 10 ^3/uL (1.6-8.6); Neutrophils % (auto) 56.3 % (37.0-80.0); Platelet Count (auto) 82 10^3/uL (140-450); Red Blood Cells 3.29 10^6/uL (4.5-5.90); Red Cell Distribution Width 14.7 % (11.8-14.3); White Blood Cell 3.2 10^3/uL (4.4-10.8)
--- NOTE | 2020-08-17 08:30 | NUR ---
PATIENT RESTING IN BED LOW FOWLERS. PATIENT DENIES ANY SOB AT THIS TIME. PATIENT IS ALERT AND ORIENTED X2. STATES HE IS AT THE HOSPITAL BUT DOES NOT KNOW WHAT BROUGHT HIM AND STATES THE YEAR IS 1986, DOES NOT KNOW CURRENT PRESIDENT EITHER. NO S/S OF DISTRESS NOTED AT THIS TIME. PATIENT STATES HE HAD A BM YESTERDAY. BED IN LOWEST LOCKED POSITION.
[2020-08-17 08:52] LABS: Potassium 3.7 mmol/L (3.5-5.1)
[2020-08-17 09:01] LABS: Albumin 2.8 g/dL (3.4-5.0); BUN/Creatinine Ratio 13.7; Bilirubin, Total 0.7 mg/dL (0.2-1.0); Calcium 7.9 mg/dL (8.5-10.1); Magnesium 2.1 mg/dL (1.6-2.6); Phosphorus 3.6 mg/dL (2.5-4.90); Total Protein 6.1 g/dL (6.4-8.2)
[2020-08-17] MEDS ORDERED: FAMOTIDINE 20 MG TAB PO SCH (10:00)
--- NOTE | 2020-08-17 10:39 | NUR ---
ROSSANA SWABBED WALKED UP TO LAB BY BRITANY RAMIREZ.
[2020-08-17] MEDS: busPIRone HCL 10 MG TAB PO SCH ×2 (10:51→23:11)
[2020-08-17] MEDS: MEMANTINE HCL 5 MG TAB PO SCH ×2 (10:52→23:12)
[2020-08-17] MEDS: ASPirin-EC 81 mg tab PO SCH (10:52)
[2020-08-17] MEDS: PANTOPRAZOLE 40 MG TAB PO SCH (10:52)
[2020-08-17] MEDS: CLOPIDOGREL BISULFATE 75 MG TAB PO SCH (10:52)
[2020-08-17] MEDS: CARVEDILOL 12.5 MG TAB PO SCH ×2 (10:52→23:12)
[2020-08-17] MEDS: SODIUM CHLORIDE 0.9% 1,000 ML IV SCH ×2 (11:25→17:30)
[2020-08-17 11:43] VITALS: BP 107/61
[2020-08-17] MEDS ORDERED: FOLIC ACID 1 MG, MULTIPLE VITAMIN 10 ML, MAGNESIUM SULF SDV 50% 8 MEQ, THIAMINE INJ 100... INJ SCH ×5 (12:00)
--- NOTE | 2020-08-17 16:52 | NUR ---
PATIENT ATTMEPTING TO URINATE. ONLY ABLE TO URINATE 50MLS. BLADDER SCAN PERFORMED FOR PVR WHICH SHOWED >477MLS. PAGED Domo HULL FOR ORDERS. AWAITING CALL BACK.
[2020-08-17 17:00] VITALS: BP 123/69
[2020-08-17] MEDS ORDERED: cefTRIAXone 1GM/50ML D5W 50 ML IV ONE (17:30)
[2020-08-17] MEDS ORDERED: ENOXAPARIN SOD 30 MG/0.3 ML SYRINGE SC SCH (18:00)
--- NOTE | 2020-08-17 18:00 | NUR ---
PER M.Omar HULL DO NOT GIVE ANTIBIOTIC UNTIL URINALYSIS HAS BEEN SENT AND BLOOD CULTURE HAS BEEN COLLECTED.
--- NOTE | 2020-08-17 18:06 | NUR ---
16 MOHAWK DAVEY CATHETER INSERTED USING STERILE TECHNIQUE. PATIENT TOLERATED WELL DRAINING CLEAR YELLOW URINE. HUNG BELOW BLADDER, TOLERATING WELL. URINE SENT FOR UA AND URINE CULTURE.
--- NOTE | 2020-08-17 18:08 | NUR ---
LAY OUT FORMER AT BEDSIDE.
[2020-08-17 18:34] LABS: Urine Bacteria NONE SEEN /hpf (None Seen); Urine Blood Negative /uL (Negative); Urine Specific Gravity 1.011 (1.001-1.035); Urine WBC <1 /hpf (0 - 3)
--- NOTE | 2020-08-17 18:41 | NUR ---
SPOKE TO Domo WICK OVER THE PHONE. UPDATED ON PATIENT STATUS. NO NEW ORDERS RECEIVED.
[2020-08-17 19:19] LABS: Alcohol, Urine < 3.0 mg/dL (0-10); Amphetamine Screen, Urine NEGATIVE (NEGATIVE); Barbiturate Scree,Urine NEGATIVE (NEGATIVE); Benzodiazephine Screen, Urine NEGATIVE (NEGATIVE); Cannabinoid Screen, Urine NEGATIVE (NEGATIVE); Cocaine Screen, Urine NEGATIVE (NEGATIVE); Opiate Scree,Urine NEGATIVE (NEGATIVE); Phencyclidine Screen, Urine NEGATIVE (NEGATIVE)
[2020-08-17] MEDS ORDERED: IOHEXOL 350 MG/ML 100ML IJ ONE (19:26)
--- NOTE | 2020-08-17 19:55 | NUR ---
Opening Shift Note Assumed care of patient. Awake, alert and oriented x4. Pt stated where he was, year, name and he knew who the president is. No S/S of distress/SOB or pain at this time. Pt is on RA with even and unlabored respirations. [place] is off the floor, patent and draining clear, yellow urine. Instructed on POC and to call for assist PRN. Bed locked, in lowest position, call light within reach, side rails up x2, bed alarm on for safety. Will continue to monitor for changes Q1hr and PRN.
[2020-08-17 22:00] VITALS: BP 108/66
[2020-08-17] MEDS: LACTULOSE 20Gm/30ML SOLN PO SCH (23:10)
[2020-08-17] MEDS: ATORVASTATIN 20 MG TAB PO SCH (23:12)
[2020-08-18] MEDS: SODIUM CHLORIDE 0.9% 1,000 ML IV SCH ×2 (03:08→13:30)
[2020-08-18 05:00] VITALS: BP 136/79
[2020-08-18 05:32] LABS: Basophils # (auto) 0 10 ^3/uL (0-0.2); Eosinophils # (auto) 0.1 10 ^3/uL (0-0.8); Eosinophils % (auto) 3.7 % (0.0-7.0); Hematocrit 29.5 % (41.0-53.0); Hemoglobin 10.1 g/dL (13.5-17.5); Lymphocytes # (auto) 0.4 10 ^3/uL (0.4-5.4); Lymphocytes % (auto) 18.1 % (10.0-50.0); Mean Corpuscular Hemoglobin 33.4 pg (28.0-32.0); Mean Corpuscular Hgb Conc. 34.2 g/dL (32.0-36.0); Mean Corpuscular Volume 97.8 fL (80.0-100.0); Monocytes # (auto) 0.3 10 ^3/uL (0-1.3); Monocytes % (auto) 11.2 % (0.0-12.0); Neutrophils # (auto) 1.5 10 ^3/uL (1.6-8.6); Nucleated Red Blood Cells % 0.1 %; Platelet Count (auto) 66 10^3/uL (140-450); Red Blood Cells 3.01 10^6/uL (4.5-5.90); Red Cell Distribution Width 14.7 % (11.8-14.3); White Blood Cell 2.3 10^3/uL (4.4-10.8)
[2020-08-18 05:53] LABS: Potassium 3.8 mmol/L (3.5-5.1)
[2020-08-18 05:59] LABS: Albumin 2.7 g/dL (3.4-5.0); BUN/Creatinine Ratio 10.5; Bilirubin, Total 0.6 mg/dL (0.2-1.0); Calcium 7.5 mg/dL (8.5-10.1); Total Protein 5.7 g/dL (6.4-8.2)
[2020-08-18] MEDS: MEXILETINE HYDROCHLORIDE 150 MG CAP PO SCH ×2 (06:01→14:00)
--- NOTE | 2020-08-18 07:58 | NUR ---
CALLED RADIOLOGY TO REQUEST TIME FOR PATIENT TO GET CT OF CHEST WITH CONTRAST. PER TICK ERADICATOR WILL KEEP THIS RN UP TO DATE ON TIME FOR CT.
[2020-08-18 08:00] VITALS: BP 133/70
--- NOTE | 2020-08-18 08:01 | NUR ---
PATIENT PULLED OUT L FOREARM IV ON ACCIDENT. PATIENT IS ALERT AND ORIENTED X4. OLD IV SITE DRESSED. NO BLEEDING NOTED AT THIS TIME.
[2020-08-18] MEDS ORDERED: cefTRIAXone 1GM/50ML D5W 50 ML IV SCH (09:00)
[2020-08-18] MEDS: LACTULOSE 20Gm/30ML SOLN PO SCH (09:08)
[2020-08-18] MEDS: MEMANTINE HCL 5 MG TAB PO SCH (09:09)
[2020-08-18] MEDS: busPIRone HCL 10 MG TAB PO SCH (09:09)
[2020-08-18] MEDS: CLOPIDOGREL BISULFATE 75 MG TAB PO SCH (09:09)
[2020-08-18] MEDS: ASPirin-EC 81 mg tab PO SCH (09:09)
[2020-08-18] MEDS: PANTOPRAZOLE 40 MG TAB PO SCH (09:10)
[2020-08-18] MEDS: CARVEDILOL 12.5 MG TAB PO SCH (09:10)
[2020-08-18] MEDS ORDERED: IOHEXOL 350 MG/ML 100ML IJ ONE (09:27)
--- NOTE | 2020-08-18 09:28 | NUR ---
IV INSERTED TO RFA 20 GAUGE ON FIRST ATTEMPT FOLLOWING HOSPITAL PROTOCOL/POLICY. PATIENT TOLERATED WELL. PATIENT IS ALERT AND ORIENTED X4. PATIENT STATES HE DOES NOT WANT HOSPICE, HE JUST WANTS TO BE HOME WITH HIS DAUGHTER.
--- NOTE | 2020-08-18 09:45 | NUR ---
PATIENT NOT ALERT AND ORIENTED AT THIS TIME. PATIENT STATING HE HAS A BAG THAT WAS TAKEN FROM HIM. THIS RN ATTEMPTING TO ORIENT PATIENT TO ROOM AND HIS BELONGINGS AT BEDSIDE. PATIENT VERBALIZING UNDERSTANDING. WILL CONTINUE TO MONITOR.
[2020-08-18] MEDS ORDERED: FOLIC ACID 1 MG TAB PO SCH (10:00)
[2020-08-18] MEDS ORDERED: FINASTERIDE 5 MG TAB PO SCH (10:00)
[2020-08-18] MEDS ORDERED: THIAMINE HCL 100 MG TAB PO SCH (10:00)
--- NOTE | 2020-08-18 10:15 | NUR ---
SPOKE WITH HOSPICE AGENCY IN REGARDS TO PATIENT BEING DISCHARGED ON HOSPICE. PER JAMES FROM [facility]. DAUGHTER SHELBIE WOULD LIKE HOSPICE FOR FATHER.
[2020-08-18] MEDS ORDERED: THIA100T10 PO (11:38)
[2020-08-18] MEDS ORDERED: TAM04C PO (11:38)
[2020-08-18] MEDS ORDERED: FOLI1TAB6 PO (11:38)
[2020-08-18] MEDS ORDERED: FIN5T PO (11:38)
[2020-08-18 12:00] VITALS: BP 128/69
--- NOTE | 2020-08-18 14:24 | NUR ---
SPOKE WITH DAUGHTER SHELBIE,PER SHELBIE SHE IS OK WITH PATIENT GOING HOME ON HOSPICE AND IS AWARE OF CUSTOMER SERVICE DRIVER TIME AT 1615 WITH [employer]. DONNA ALAN PRESENT FOR CONVERSATION A WITNESS TO FAMILY MEMBERS AGREEANCE TO DISCHARGE.
--- NOTE | 2020-08-18 15:15 | NUR ---
PATIENT PROVIDED WITH FULL BED BATH. PATIENT CLOTHES PLACED BACK ON, PATIENTS BOXERS SATURATED WITH STOOL. THIS RN OBTAINED SHORTS FROM [facility] FOR PATIENT TO BE DISCHARGED WITH. PATIENT QUESTIONING WHEN DAVEY CATHETER WILL BE REMOVED. PATIENT CONTINUOS TO BE ALTERED. THIS RN ATTEMPTING TO REORIENT PATIENT. WILL CONTINUE TO REORIENT.
--- NOTE | 2020-08-18 16:23 | NUR ---
Discharge instructions given as ordered. Encourage to follow up with PMD as instructed. DISCHARGED WITH [facility] AT BEDSIDE FOR TRANSPORTATION. SPOKE WITH DAUGHTER OJ AND INFORMED OF PATIENTS NEW HOME MEDICATIONS. All questions and concerns addressed. Patient verbalized understanding. Home medications held in Pharmacy returned to patient, and needed vaccines given. lawson catheter in place. Telemetry unit returned to ICU. Patient taken to vehicle via wheelchair with all personal belongings, accompanied by staff and family member. No distress noted at time of departure.
[2020-08-18] MEDS ORDERED: TAMSULOSIN HYDROCHLORIDE 0.4 MG CAP PO SCH (18:00)
[2020-08-19 16:15] LABS: Folate (Folic Acid) 8.51 ng/mL (5.38-24)
== END 2020-08-18 16:21 | disposition hospice, inpatient (51) | DRG 433 ==
LOC: ER 14:05 → EDBD 14:05 → EDUNIT# 14:05 → TELE-EAST 14:06
PROVIDERS: ADMIT Family Medicine; ATTEND Family Medicine
DX: K70.31 Alcoholic cirrhosis of liver with ascites (principal); D61.818 Other pancytopenia; N39.0 Urinary tract infection, site not specified; Z68.1 Body mass index [BMI] 19.9 or less, adult; J98.11 Atelectasis; J90 Pleural effusion, not elsewhere classified; K72.90 Hepatic failure, unspecified without coma; E78.5 Hyperlipidemia, unspecified; F03.90 Unspecified dementia, unspecified severity, without behavioral disturbance, psychotic disturbance, mood disturbance, and anxiety; F17.210 Nicotine dependence, cigarettes, uncomplicated; F32.9 Major depressive disorder, single episode, unspecified; I11.0 Hypertensive heart disease with heart failure; I25.10 Atherosclerotic heart disease of native coronary artery without angina pectoris; I50.9 Heart failure, unspecified; I67.2 Cerebral atherosclerosis; K21.9 Gastro-esophageal reflux disease without esophagitis; R62.7 Adult failure to thrive; Z79.02 Long term (current) use of antithrombotics/antiplatelets; Z79.899 Other long term (current) drug therapy; Z82.49 Family history of ischemic heart disease and other diseases of the circulatory system; Z95.0 Presence of cardiac pacemaker; Z95.5 Presence of coronary angioplasty implant and graft; F10.10 Alcohol abuse, uncomplicated; Y90.9 Presence of alcohol in blood, level not specified; R79.1 Abnormal coagulation profile; B18.2 Chronic viral hepatitis C; I27.21 Secondary pulmonary arterial hypertension; Z20.828 Contact with and (suspected) exposure to other viral communicable diseases; B95.2 Enterococcus as the cause of diseases classified elsewhere
CPT/HCPCS: 36415; 70450; 71045; 71275; 76700; 80053; 80307; 80320; 81001; 82105; 82140; 82607; 82728; 82746; 83605; 83615; 83735; 83880; 84100; 84436; 84443; 84484; 85025; 85379; 85610; 85730; 86141; 87040; 87086; 87088; 87186; 87426; 93005; 93970; G0378; J0696

== ENCOUNTER 2023-06-16 10:20 | Inpatient (IN) | payer OTHER ==
[~2023-06-16] VITALS: Ht 172.7 cm; Wt 54.3 kg
[~2023-06-16 10:20] MED LIST changes: -CLOP75TA41 PO; +CLOP75TA70 PO; +FIN5T PO; +FOLI-119 PO; +TAMS-35 PO; +THIA100T10 PO
[2023-06-16 11:09] LABS: Hemoglobin 10.1 g/dL (13.5-17.5)
[2023-06-16 11:12] LABS: Basophils # (auto) 0.1 10 ^3/uL (0-0.2); Basophils % (auto) 0.8 % (0.0-2.0); Eosinophils # (auto) 0.2 10 ^3/uL (0-0.8); Eosinophils % (auto) 3.4 % (0.0-7.0); Hematocrit 32.5 % (41.0-53.0); Lymphocytes # (auto) 1.3 10 ^3/uL (0.4-5.4); Lymphocytes % (auto) 19.3 % (10.0-50.0); Mean Corpuscular Hemoglobin 28.5 pg (28.0-32.0); Mean Corpuscular Volume 92.2 fL (80.0-100.0); Monocytes # (auto) 1.1 10 ^3/uL (0-1.3); Neutrophils % (auto) 60.5 % (37.0-80.0); Nucleated Red Blood Cells % 0.3 %; Red Blood Cells 3.53 10^6/uL (4.5-5.90); White Blood Cell 6.6 10^3/uL (4.4-10.8)
[2023-06-16] MEDS ORDERED: SODIUM CHLORIDE 0.9% 500 ML IV ONE (11:15)
[2023-06-16 11:24] LABS: Albumin 3.2 g/dL (3.4-5.0); Calcium 8.5 mg/dL (8.5-10.1); Potassium 4.5 mmol/L (3.5-5.1)
[2023-06-16 11:29] LABS: Bilirubin, Total 0.5 mg/dL (0.2-1.0); Total Protein 8.2 g/dL (6.4-8.2)
[2023-06-16 12:29] LABS: INR 1.06 (0.9-1.15); Partial Thromboplastin Time 29.5 SEC (24.5-34.5)
[2023-06-16] MEDS ORDERED: NITROGLYCERIN 0.4 MG SL TAB SL PRN (15:15)
[2023-06-16] MEDS ORDERED: HYDROcodone-ACET 5/325MG TAB PO PRN (15:15)
[2023-06-16] MEDS ORDERED: ONDANSETRON HCL 4 MG/2 ML VIAL IV PRN (15:15)
[2023-06-16] MEDS ORDERED: ACETAMINOPHEN 325 MG TAB PO PRN (15:15)
[2023-06-16] MEDS ORDERED: MORPHINE SULFATE INJ 2 MG/ml SYRG IV PRN ×2 (15:15)
[2023-06-16 16:50] VITALS: BP 125/65; PULSE 72; RESP 18; TEMP 97.5; O2SAT 98
== END 2023-06-16 17:03 | disposition left against medical advice (07) | DRG 312 ==
LOC: ER 10:20 → TELE 15:03
PROVIDERS: ADMIT Internal Medicine; ATTEND Internal Medicine
DX: R55 Syncope and collapse (principal); R42 Dizziness and giddiness; I11.0 Hypertensive heart disease with heart failure; I25.10 Atherosclerotic heart disease of native coronary artery without angina pectoris; I50.9 Heart failure, unspecified; F32.A Depression, unspecified; Z53.29 Procedure and treatment not carried out because of patient's decision for other reasons; Z95.0 Presence of cardiac pacemaker; Z87.891 Personal history of nicotine dependence
CPT/HCPCS: 36415; 70450; 71046; 80053; 83735; 84484; 85025; 85610; 85730; 86850; 86900; 86901; 93005; 96360; 99291; G0378

== ENCOUNTER 2023-07-30 19:02 | Inpatient (IN) | payer OTHER, MEDICAID ==
[~2023-07-30] VITALS: Ht 172.7 cm; Wt 47.1 kg
[2023-07-30 20:19] LABS: Alanine Aminotransferase 34 U/L (7-40); Albumin 3.7 g/dL (3.2-4.8); Alkaline Phosphatase 97 U/L (46-116); Anion Gap 8.2 (5-15); Aspartate Aminotransferase 80 U/L (13-40); BUN/Creatinine Ratio 18.6 (10.0-20.0); Bilirubin, Total 0.6 mg/dL (0.2-1.0); Blood Urea Nitrogen 19 mg/dL (9-23); Calcium 9.1 mg/dL (8.5-10.1); Carbon Dioxide 19.8 mmol/L (20-30); Chloride 108 mmol/L (98-107); Glucose 85 mg/dL (74-106); Lipase 71 U/L (12-53); Sodium 136 mmol/L (136-145); Total Protein 7.2 g/dL (5.7-8.2)
[2023-07-30 20:27] LABS: Basophils # (auto) 0 10 ^3/uL (0-0.2); Basophils % (auto) 1.1 % (0.0-2.0); Eosinophils # (auto) 0 10 ^3/uL (0-0.8); Eosinophils % (auto) 1.1 % (0.0-7.0); Hematocrit 30.4 % (41.0-53.0); Hemoglobin 9.8 g/dL (13.5-17.5); Lymphocytes # (auto) 0.8 10 ^3/uL (0.4-5.4); Lymphocytes % (auto) 21.5 % (10.0-50.0); Mean Corpuscular Hemoglobin 29.1 pg (28.0-32.0); Mean Corpuscular Hgb Conc. 32.1 g/dL (32.0-36.0); Mean Corpuscular Volume 90.5 fL (80.0-100.0); Monocytes # (auto) 0.4 10 ^3/uL (0-1.3); Monocytes % (auto) 10.6 % (0.0-12.0); Neutrophils # (auto) 2.4 10 ^3/uL (1.6-8.6); Neutrophils % (auto) 65.7 % (37.0-80.0); Nucleated Red Blood Cells % 0.4 %; Red Blood Cells 3.36 10^6/uL (4.5-5.90); Red Cell Distribution Width 19.4 % (11.8-14.3); White Blood Cell 3.6 10^3/uL (4.4-10.8)
[2023-07-30 22:00] VITALS: O2SAT 99
[2023-07-31] MEDS ORDERED: LORazepam 2MG/ML-1ML VIAL IV ONE (00:45)
[2023-07-31] MEDS ORDERED: ONDANSETRON HCL 4 MG/2 ML VIAL IV PRN (03:15)
[2023-07-31] MEDS ORDERED: DOCUSATE SOD 100 MG CAP PO PRN (03:15)
[2023-07-31] MEDS ORDERED: NITROGLYCERIN 0.4 MG SL TAB SL PRN (03:15)
[2023-07-31] MEDS ORDERED: MORPHINE SULFATE INJ 2 MG/ml SYRG IV PRN (03:15)
[2023-07-31] MEDS: LACTULOSE 20Gm/30ML SOLN PO SCH ×5 (06:36→22:00)
[2023-07-31 07:31] LABS: Anion Gap 12.5 (5-15); Carbon Dioxide 16.5 mmol/L (20-30); Chloride 108 mmol/L (98-107); Potassium 4.4 mmol/L (3.5-5.1); Sodium 137 mmol/L (136-145)
[2023-07-31 07:35] LABS: Glucose 77 mg/dL (74-106)
[2023-07-31 07:37] LABS: BUN/Creatinine Ratio 21.1 (10.0-20.0); Blood Urea Nitrogen 20 mg/dL (9-23)
[2023-07-31 07:55] LABS: Basophils # (auto) 0 10 ^3/uL (0-0.2); Eosinophils # (auto) 0 10 ^3/uL (0-0.8); Eosinophils % (auto) 0.9 % (0.0-7.0); Hematocrit 32.1 % (41.0-53.0); Hemoglobin 10.4 g/dL (13.5-17.5); Lymphocytes # (auto) 0.8 10 ^3/uL (0.4-5.4); Lymphocytes % (auto) 29.1 % (10.0-50.0); Mean Corpuscular Hemoglobin 28.8 pg (28.0-32.0); Mean Corpuscular Hgb Conc. 32.4 g/dL (32.0-36.0); Mean Corpuscular Volume 88.9 fL (80.0-100.0); Monocytes # (auto) 0.5 10 ^3/uL (0-1.3); Monocytes % (auto) 16.7 % (0.0-12.0); Neutrophils # (auto) 1.5 10 ^3/uL (1.6-8.6); Neutrophils % (auto) 52.3 % (37.0-80.0); Nucleated Red Blood Cells % 0.1 %; Red Blood Cells 3.61 10^6/uL (4.5-5.90); Red Cell Distribution Width 18.9 % (11.8-14.3); White Blood Cell 2.9 10^3/uL (4.4-10.8)
[2023-07-31 08:00] VITALS: PULSE 67; RESP 14; O2SAT 100
[2023-07-31] MEDS ORDERED: MIRT1TAB39 PO (09:38)
[2023-07-31] MEDS ORDERED: MEXI150C15 PO (09:38)
[2023-07-31] MEDS ORDERED: ATOR20TA50 PO (09:38)
[2023-07-31] MEDS ORDERED: SERT-206 PO (09:38)
[2023-07-31 10:10] VITALS: BP 122/45; PULSE 70; RESP 16; TEMP 97.2; O2SAT 98; O2SAT 99
[2023-07-31] MEDS ORDERED: FAMO20TA10 PO (10:51)
[2023-07-31] MEDS ORDERED: TAMS0.4C36 PO (10:51)
[2023-07-31] MEDS ORDERED: HYD25TP TOP (10:52)
[2023-07-31] MEDS ORDERED: GABA-1250 PO (10:52)
[2023-07-31] MEDS ORDERED: MEMA1TAB3 PO (10:52)
[2023-07-31 12:55] LABS: Urine Bacteria NONE SEEN /hpf (None Seen); Urine Blood Negative /uL (Negative); Urine Clarity Clear (Clear); Urine Color Yellow (Yellow); Urine Mucus FEW (None Seen); Urine Protein, UAD TRACE (Negative); Urine Specific Gravity 1.023 (1.001-1.035); Urine Urobilinogen Normal (Negative); Urine WBC 2 /hpf (0 - 3); Urine pH 5.5 (5.0-8.0)
[2023-07-31 13:00] VITALS: BP 122/45; PULSE 70; RESP 18; TEMP 97.2; O2SAT 99
[2023-07-31 16:57] VITALS: BP 102/49; PULSE 66; RESP 16; TEMP 98.5; O2SAT 99
[2023-07-31 20:00] VITALS: BP 137/70; PULSE 64; PULSE 76; RESP 20; TEMP 97.5; O2SAT 100
[2023-07-31 22:00] VITALS: BP 137/70; PULSE 64; RESP 20; TEMP 97.5; O2SAT 100
[2023-07-31] MEDS: ACETAMINOPHEN 325 MG TAB PO PRN (23:00)
[2023-08-01] MEDS: LACTULOSE 20Gm/30ML SOLN PO SCH ×3 (02:00→10:41)
[2023-08-01 05:00] VITALS: BP 132/43; PULSE 70; RESP 18; TEMP 97.5; O2SAT 100
[2023-08-01 05:16] LABS: Basophils # (auto) 0 10 ^3/uL (0-0.2); Basophils % (auto) 0.7 % (0.0-2.0); Eosinophils # (auto) 0 10 ^3/uL (0-0.8); Eosinophils % (auto) 0.5 % (0.0-7.0); Hematocrit 32.4 % (41.0-53.0); Hemoglobin 10.7 g/dL (13.5-17.5); Lymphocytes % (auto) 27.5 % (10.0-50.0); Mean Corpuscular Hemoglobin 29.4 pg (28.0-32.0); Mean Corpuscular Hgb Conc. 32.8 g/dL (32.0-36.0); Mean Corpuscular Volume 89.6 fL (80.0-100.0); Monocytes # (auto) 0.5 10 ^3/uL (0-1.3); Neutrophils % (auto) 57.3 % (37.0-80.0); Nucleated Red Blood Cells % 0.1 %; Red Blood Cells 3.62 10^6/uL (4.5-5.90); Red Cell Distribution Width 19.9 % (11.8-14.3); White Blood Cell 3.5 10^3/uL (4.4-10.8)
[2023-08-01 05:18] LABS: Anion Gap 7.2 (5-15); Carbon Dioxide 20.8 mmol/L (20-30); Chloride 109 mmol/L (98-107); Potassium 3.9 mmol/L (3.5-5.1); Sodium 137 mmol/L (136-145)
[2023-08-01 05:20] LABS: Calcium 8.9 mg/dL (8.7-10.4)
[2023-08-01 05:24] LABS: BUN/Creatinine Ratio 16.4 (10.0-20.0); Blood Urea Nitrogen 18 mg/dL (9-23); Glucose 93 mg/dL (74-106)
[2023-08-01 08:00] VITALS: PULSE 70; RESP 18; O2SAT 98
[2023-08-01 09:00] VITALS: BP 115/67; PULSE 65; RESP 16; TEMP 97.5; O2SAT 99
[2023-08-01] MEDS: ACETAMINOPHEN 325 MG TAB PO PRN (10:39)
== END 2023-08-01 12:57 | disposition home health service (06) | DRG 392 ==
LOC: ER 19:02 → EDBD 19:02 → TELE 07-31 03:12 → TELE-WESTW 07-31 09:58
PROVIDERS: ADMIT Nurse Practitioner Family; ATTEND Nurse Practitioner Family
DX: R10.9 Unspecified abdominal pain (principal); G93.40 Encephalopathy, unspecified; D64.9 Anemia, unspecified; D69.6 Thrombocytopenia, unspecified; F02.80 Dementia in other diseases classified elsewhere, unspecified severity, without behavioral disturbance, psychotic disturbance, mood disturbance, and anxiety; G30.9 Alzheimer's disease, unspecified; F32.A Depression, unspecified; R74.8 Abnormal levels of other serum enzymes; I11.0 Hypertensive heart disease with heart failure; I50.9 Heart failure, unspecified; E78.5 Hyperlipidemia, unspecified; I25.10 Atherosclerotic heart disease of native coronary artery without angina pectoris; N28.1 Cyst of kidney, acquired; Z87.891 Personal history of nicotine dependence; Z88.6 Allergy status to analgesic agent; Z95.0 Presence of cardiac pacemaker
CPT/HCPCS: 36415; 70450; 74176; 76775; 80048; 80053; 81001; 82140; 83690; 85025; 93005; 96374; G0378

== ENCOUNTER 2023-08-23 09:41 | Day surgery (SDC) | payer OTHER, MEDICAID ==
[~2023-08-23] VITALS: Ht 172.7 cm; Wt 63.5 kg
[~2023-08-23 09:41] MED LIST changes: -ATOR20TA PO; +ATOR20TA50 PO; +FAMO20TA10 PO; -FOLI-119 PO; +GABA-1250 PO; -HYDR-3682 PO; -MAGN400C4 PO; +MEMA1TAB3 PO; -MEMA5TAB2 PO; -MEX150C PO; +MEXI150C15 PO; +MIRT1TAB39 PO; -PANT40TA2 PO; +SERT-206 PO; -TAMS-35 PO; +TAMS0.4C36 PO; -THIA100T10 PO; -TRAZ-181 PO
[2023-08-23] MEDS ORDERED: MIDAZOLAM HCL 2MG/2ML 2ml VIAL (1mg/ml) IV ONE (10:00)
[2023-08-23] MEDS ORDERED: LIDOCAINE VISCOUS 2% 15ML UD PO ONE (10:00)
[2023-08-23] MEDS ORDERED: fentaNYL CITRATE 100 MCG/2 ML VL IV ONE (10:00)
[2023-08-23] MEDS ORDERED: MIDAZOLAM HCL 2MG/2ML 2ml VIAL (1mg/ml) ONE (10:10)
[2023-08-23] MEDS ORDERED: FLUMAZENIL 0.1 MG/ML INJ 10ML MDV IV ONE (10:10)
[2023-08-23] MEDS ORDERED: fentaNYL CITRATE 100 MCG/2 ML VL ONE (10:10)
[2023-08-23] MEDS ORDERED: LIDOCAINE VISCOUS 2% 15ML UD ONE (10:10)
[2023-08-23] MEDS ORDERED: NALOXONE HCL 0.4 MG/ML VIAL ONE (10:10)
[2023-08-23] MEDS ORDERED: VERAPAMIL 2.5MG/ML INJ 2ML VIAL IV ONE (11:01)
[2023-08-23] MEDS ORDERED: HEPARIN SODIUM (PORCINE) 5000 UNITS/ML 1ML VIAL ONE (11:01)
[2023-08-23] MEDS ORDERED: LIDOCAINE 2%HCL (LOCAL ANESTH.) INJ 20ML MDV ONE (11:01)
[2023-08-23] MEDS ORDERED: IODIXANOL 320MG/ML 100ML BTL IV ONE (11:01)
[2023-08-23] MEDS ORDERED: SODIUM CHL 0.9% 0 ML ONE (11:02)
[2023-08-23] MEDS ORDERED: ANGIOMAX 250 MG VIAL IV ONE (11:02)
[2023-08-23] MEDS ORDERED: SODIUM CHL 0.9% 50 ML ONE (11:04)
== END 2023-08-23 15:12 | disposition home or self-care (01) ==
LOC: CATH 09:41
PROVIDERS: ATTEND Internal Medicine
DX: I25.10 Atherosclerotic heart disease of native coronary artery without angina pectoris (principal); I08.3 Combined rheumatic disorders of mitral, aortic and tricuspid valves; Z79.899 Other long term (current) drug therapy; Z98.890 Other specified postprocedural states; E78.5 Hyperlipidemia, unspecified
CPT/HCPCS: 93312; 93458; C1725; C1894; J1644; J2250; J3010; J7030; Q9967; 99152; 99153

== ENCOUNTER 2023-09-09 12:41 | Inpatient (IN) | payer OTHER, MEDICAID ==
[~2023-09-09] VITALS: Ht 180.3 cm; Wt 53.3 kg
[2023-09-09] MEDS ORDERED: PANTOPRAZOLE 40 MG/10 ML VIAL INJ IV ONE (13:30)
[2023-09-09 14:54] LABS: Basophils # (auto) 0 10 ^3/uL (0-0.2); Basophils % (auto) 0.2 % (0.0-2.0); Eosinophils # (auto) 0 10 ^3/uL (0-0.8); Hematocrit 26.5 % (41.0-53.0); Hemoglobin 8.6 g/dL (13.5-17.5); Lymphocytes # (auto) 0.8 10 ^3/uL (0.4-5.4); Mean Corpuscular Hemoglobin 30.4 pg (28.0-32.0); Mean Corpuscular Hgb Conc. 32.6 g/dL (32.0-36.0); Monocytes # (auto) 1.1 10 ^3/uL (0-1.3); Monocytes % (auto) 10.3 % (0.0-12.0); Neutrophils # (auto) 9.1 10 ^3/uL (1.6-8.6); Neutrophils % (auto) 82.5 % (37.0-80.0); Red Blood Cells 2.85 10^6/uL (4.5-5.90); Red Cell Distribution Width 16.8 % (11.8-14.3)
[2023-09-09 15:05] LABS: Alanine Aminotransferase 41 U/L (7-40); Albumin 3.9 g/dL (3.2-4.8); Alkaline Phosphatase 84 U/L (46-116); Anion Gap 10 (5-15); Aspartate Aminotransferase 94 U/L (13-40); BUN/Creatinine Ratio 54.3 (10.0-20.0); Bilirubin, Total 1.3 mg/dL (0.2-1.0); Calcium 8.6 mg/dL (8.7-10.4); Carbon Dioxide 26 mmol/L (20-30); Chloride 106 mmol/L (98-107); Glucose 113 mg/dL (74-106); Lipase 82 U/L (12-53); Magnesium 2.7 mg/dL (1.6-2.6); Potassium 3.5 mmol/L (3.5-5.1); Sodium 142 mmol/L (136-145); Total Protein 7.1 g/dL (5.7-8.2)
[2023-09-09 15:12] LABS: INR 1.16 (0.9-1.15); Partial Thromboplastin Time 22.3 SEC (24.5-34.5); Prothrombin Time 12.1 sec (9.3-11.8)
[2023-09-09 15:34] LABS: Blood Urea Nitrogen 89 mg/dL (9-23)
[2023-09-09] MEDS ORDERED: OCTREOTIDE ACETATE 100 MCG in SODIUM CHL 0.9% 50 ML IV ONE (16:00)
[2023-09-09] MEDS ORDERED: SODIUM CHLORIDE 0.9% 500 ML IV ONE (16:00)
[2023-09-09] MEDS ORDERED: NITROGLYCERIN 0.4 MG SL TAB SL PRN (17:15)
[2023-09-09] MEDS ORDERED: MORPHINE SULFATE INJ 2 MG/ml SYRG IV PRN ×2 (17:15)
[2023-09-09] MEDS ORDERED: HYDROcodone-ACET 5/325MG TAB PO PRN (17:15)
[2023-09-09] MEDS ORDERED: ACETAMINOPHEN 325 MG TAB PO PRN (17:15)
[2023-09-09] MEDS ORDERED: DOCUSATE SOD 100 MG CAP PO PRN (17:15)
[2023-09-09 19:30] VITALS: PULSE 77; RESP 20; O2SAT 94
[2023-09-09] MEDS: SODIUM CHLORIDE 0.9% 1,000 ML IV SCH (22:23)
[2023-09-10] VITALS (9 sets, daily range): BP systolic 102–126; BP diastolic 46–62; PULSE 65–74; RESP 16–23; TEMP 97.4–98.6; O2SAT 97–100
[2023-09-10] MEDS: SODIUM CHLORIDE 0.9% 1,000 ML IV SCH ×3 (02:41→19:52)
[2023-09-10 05:33] LABS: Basophils # (auto) 0 10 ^3/uL (0-0.2); Basophils % (auto) 0.2 % (0.0-2.0); Eosinophils # (auto) 0 10 ^3/uL (0-0.8); Lymphocytes # (auto) 0.7 10 ^3/uL (0.4-5.4); Monocytes # (auto) 0.8 10 ^3/uL (0-1.3)
[2023-09-10 05:35] LABS: Eosinophils % (auto) 0.2 % (0.0-7.0); Hematocrit 17.5 % (41.0-53.0); Lymphocytes % (auto) 13.4 % (10.0-50.0); Mean Corpuscular Hemoglobin 31.2 pg (28.0-32.0); Mean Corpuscular Hgb Conc. 32.9 g/dL (32.0-36.0); Mean Corpuscular Volume 94.6 fL (80.0-100.0); Neutrophils # (auto) 3.7 10 ^3/uL (1.6-8.6); Neutrophils % (auto) 71.2 % (37.0-80.0); Red Blood Cells 1.85 10^6/uL (4.5-5.90); Red Cell Distribution Width 16.9 % (11.8-14.3); White Blood Cell 5.3 10^3/uL (4.4-10.8)
[2023-09-10 05:37] LABS: Alanine Aminotransferase 36 U/L (7-40); Albumin 3.2 g/dL (3.2-4.8); Alkaline Phosphatase 68 U/L (46-116); Anion Gap 9 (5-15); Aspartate Aminotransferase 79 U/L (13-40); BUN/Creatinine Ratio 47.9 (10.0-20.0); Calcium 7.7 mg/dL (8.7-10.4); Carbon Dioxide 22 mmol/L (20-30); Chloride 111 mmol/L (98-107); Glucose 147 mg/dL (74-106); Potassium 3.5 mmol/L (3.5-5.1); Sodium 142 mmol/L (136-145)
[2023-09-10 05:38] LABS: Total Protein 5.7 g/dL (5.7-8.2)
[2023-09-10 05:40] LABS: Hemoglobin 5.8 g/dL (13.5-17.5)
[2023-09-10 05:49] LABS: Blood Urea Nitrogen 67 mg/dL (9-23)
[2023-09-10 06:01] LABS: Bilirubin, Total 0.9 mg/dL (0.2-1.0)
[2023-09-10] MEDS: PANTOPRAZOLE 40mg/50ML NS AE 50 ML IV SCH ×4 (11:00→21:05)
[2023-09-10] MEDS: OCTREOTIDE ACETATE 500 MCG in SODIUM CHL 0.9% 99 ML IV SCH ×2 (11:00→21:05)
[2023-09-10 15:29] LABS: Basophils # (auto) 0 10 ^3/uL (0-0.2); Basophils % (auto) 0.1 % (0.0-2.0); Eosinophils # (auto) 0 10 ^3/uL (0-0.8); Eosinophils % (auto) 0.1 % (0.0-7.0); Lymphocytes # (auto) 0.4 10 ^3/uL (0.4-5.4); Mean Corpuscular Hgb Conc. 33.1 g/dL (32.0-36.0); Monocytes # (auto) 1.1 10 ^3/uL (0-1.3); Neutrophils # (auto) 7.1 10 ^3/uL (1.6-8.6); White Blood Cell 8.6 10^3/uL (4.4-10.8)
[2023-09-10 15:30] LABS: Hematocrit 23.6 % (41.0-53.0); Hemoglobin 7.8 g/dL (13.5-17.5); Lymphocytes % (auto) 4.7 % (10.0-50.0); Mean Corpuscular Volume 90.6 fL (80.0-100.0); Monocytes % (auto) 12.7 % (0.0-12.0); Neutrophils % (auto) 82.4 % (37.0-80.0); Red Blood Cells 2.61 10^6/uL (4.5-5.90); Red Cell Distribution Width 17.9 % (11.8-14.3)
[2023-09-10 22:44] LABS: Hematocrit 32.5 % (41.0-53.0); Hemoglobin 10.5 g/dL (13.5-17.5)
[2023-09-11] VITALS (7 sets, daily range): BP systolic 114–125; BP diastolic 53–66; PULSE 64–75; RESP 16–20; TEMP 97.3–97.9; O2SAT 97–100
[2023-09-11] MEDS: PANTOPRAZOLE 40mg/50ML NS AE 50 ML IV SCH ×3 (02:37→11:49)
[2023-09-11] MEDS: SODIUM CHLORIDE 0.9% 1,000 ML IV SCH ×2 (02:39→10:55)
[2023-09-11] MEDS: OCTREOTIDE ACETATE 500 MCG in SODIUM CHL 0.9% 99 ML IV SCH (07:00)
[2023-09-11] MEDS ORDERED: SODIUM CHLORIDE LOCK 10 ML ONE (08:58)
[2023-09-11] MEDS ORDERED: fentaNYL CITRATE 100 MCG/2 ML VL ONE (08:59)
[2023-09-11] MEDS ORDERED: MIDAZOLAM HCL 5 MG/ML-1ML VIAL ONE (08:59)
[2023-09-11] MEDS ORDERED: diphenhdrAMINE HCL 50 MG/1 ML VL ONE (08:59)
[2023-09-11] MEDS ORDERED: LIDOCAINE VISCOUS 2% 15ML UD ONE (08:59)
[2023-09-11] MEDS ORDERED: PANT40TA2 PO (12:35)
== END 2023-09-11 17:32 | disposition home health service (06) | DRG 378 ==
LOC: ER 12:41 → EDBD 12:41 → EDUNIT# 12:41 → TELE 17:06 → TELE-CENTR 09-10 17:54
PROVIDERS: ADMIT Internal Medicine; ATTEND Internal Medicine
PROC: 30233N1 Transfusion of Nonautologous Red Blood Cells into Peripheral Vein, Percutaneous Approach (ICD-10-PCS; 2023-09-10)
PROC: 0DB78ZX Excision of Stomach, Pylorus, Via Natural or Artificial Opening Endoscopic, Diagnostic (ICD-10-PCS; principal; 2023-09-11 10:03)
DX: K92.0 Hematemesis (principal); D62 Acute posthemorrhagic anemia; K76.6 Portal hypertension; I24.89 Other forms of acute ischemic heart disease; E44.1 Mild protein-calorie malnutrition; Z68.1 Body mass index [BMI] 19.9 or less, adult; B18.2 Chronic viral hepatitis C; F10.20 Alcohol dependence, uncomplicated; F17.210 Nicotine dependence, cigarettes, uncomplicated; E78.5 Hyperlipidemia, unspecified; F32.A Depression, unspecified; I11.0 Hypertensive heart disease with heart failure; I25.10 Atherosclerotic heart disease of native coronary artery without angina pectoris; I50.9 Heart failure, unspecified; F41.9 Anxiety disorder, unspecified; J44.9 Chronic obstructive pulmonary disease, unspecified; K31.89 Other diseases of stomach and duodenum; K74.60 Unspecified cirrhosis of liver; Z88.6 Allergy status to analgesic agent; Z95.810 Presence of automatic (implantable) cardiac defibrillator
CPT/HCPCS: 36415; 70450; 71045; 74176; 80053; 82140; 83605; 83690; 83735; 84484; 85014; 85018; 85025; 85610; 85730; 86850; 86900; 86901; 86920; 97110; 97116; 97163; 97530; 99291; C9113; G0378; J2250